=== PATIENT | female | born 1945 | race Caucasian/White ===

== ENCOUNTER 2018-10-10 19:57 | Inpatient (IN) ==
[2018-10-10 20:52] LABS: Bilirubin,Urine Small (Negative); Blood,Urine Moderate (Negative); Color,Urine Dark Yellow (Yellow); Glucose,Urine (UA) Normal (Normal); Ketones,Urine Negative (Negative); Leukocyte Esterase,Urine Small (Negative); Nitrite,Urine Negative (Negative); Protein,Urine 30 mg/dL (Neg-Trace); Specific Gravity,Urine 1.027 (1.010-1.025); Urobilinogen,Urine Normal (Normal)
[2018-10-10 20:54] LABS: Bacteria,Urine None Seen per hpf (None-Few); Squamous Epithelial Cell,Urine Many per lpf (None-Few); WBC,Urine 15-30 per hpf (0-3)
[2018-10-10 21:13] LABS: Basophils # 0.1 K/mcL (0.0-0.2); Basophils % 0.2 %; Eosinophils # 0.1 K/mcL (0.0-0.6); Eosinophils % 0.5 %; Hematocrit 41.9 % (35.3-44.9); Hemoglobin 13.5 g/dL (11.5-15.4); Immature Granulocytes % 1.2 % (0-4); Lymphocytes # 0.9 K/mcL (0.6-4.6); Mean Corpuscular HGB Conc 32.2 g/dL (31.6-35.5); Mean Corpuscular Hemoglobin 30.1 pg (28.0-33.3); Mean Corpuscular Volume 93.5 fL (83.0-100.0); Mean Platelet Volume 8.4 fL (9.4-12.4); Monocytes # 0.4 K/mcL (0.0-1.3); Monocytes % 1.5 %; Neutrophils # 26.8 K/mcL (1.6-8.9); Platelet Count 500 K/mcL (140-400); Red Blood Count 4.48 M/mcL (3.82-4.97); Red Cell Distribution Width 12.3 % (11.5-14.5); Segmented Neutrophils % 93.6 %; White Blood Count 28.6 K/mcL (4.3-11.1)
[2018-10-10 21:16] LABS: Clarity,Urine Hazy (Clear)
[2018-10-10 21:32] LABS: Alanine Aminotransferase 23 Units/L (7-52); Albumin 3.7 g/dL (3.5-5.7); Albumin/Globulin Ratio 1.1 (1.1-2.2); Alkaline Phosphatase 50 Units/L (34-104); Aspartate Amino Transferase 12 Units/L (13-39); BUN/Creatinine Ratio 28 (6-26); Bilirubin,Direct 0.2 mg/dL (0.0-0.2); Bilirubin,Indirect 0.2 mg/dL (0.0-1.2); Bilirubin,Total 0.4 mg/dL (0.3-1.0); Blood Urea Nitrogen 22 mg/dL (8-23); Calcium 9.2 mg/dL (8.6-10.3); Carbon Dioxide 27 mEq/L (23-29); Chloride 99 mEq/L (98-107); Globulin 3.5 g/dL (2.4-3.5); Glucose 151 mg/dL (70-105); Lipase 14 Units/L (11-82); Osmolality,Calculated 296 (280-300); Potassium 3.4 mEq/L (3.5-5.1); Sodium 140 mEq/L (136-145); Total Protein 7.2 g/dL (6.4-8.9); eGFR For African Americans > 60 (> 60); eGFR For Non-African Americans > 60 (> 60)
[2018-10-10 21:37] LABS: Hypersegmented Neutrophils Present (Not Present); Platelet Estimate Increased (Normal); Toxic Granulation Present (Not Present); Toxic Vacuolation Present (Not Present)
[2018-10-10] MEDS ORDERED: *HR* HYDROmorphone (PF) 1 MG/ML SYRINGE IVP STA (22:05)
--- NOTE | 2018-10-10 22:06 | Emergency Department Note ---
Disposition Clinical Impression: Perforated viscus Disposition: Admitted As Inpatient Condition: Serious Time of Disposition: 23:42 General Adult HPI - General Chief complaint: ED Abdominal Pain Stated complaint: ABD / Back pain Time Seen by Provider: 10/10/18 20:57 Source: patient Limitations: no limitations Nursing Notes Reviewed: Yes Vital Signs Reviewed: Yes - History of Present Illness HPI Narrative: Female patient presenting to emergency department complaining of abdominal pain is been going on for around 2 weeks. She was in [facility] within [facility] when this began. She denies any nausea or vomiting. She denies any fevers or chills. She states the pain got significantly worse today. She denies any swelling to her extremities. Does report that she had a nonproductive cough while she was there. Denies any chest pain. No provoking or alleviating factors. Pain Scale: 5 - Related Data Home Medications Medication Instructions Recorded Confirmed Lisinopril [Zestril] 5 mg PO DAILY 10/10/18 10/10/18 Allergies Allergy/AdvReac Type Severity Reaction Status Date / Time No Known Allergies Allergy Verified 10/10/18 21:16 All systems ED: reviewed and negative except as stated. Review of Systems: As Per HPI Constitutional: Denies: fever Cardiovascular: Denies: chest pain, palpitations, syncope Respiratory: Reports: cough. Denies: dyspnea, sputum production Gastrointestinal: Reports: abdominal pain. Denies: nausea, vomiting, diarrhea Genitourinary: Reports: frequency (decreased). Denies: urgency, hematuria Musculoskeletal: Denies: back pain, neck pain Neurological: Denies: weakness Past Medical History - Past Medical History Attestation: Yes The following information was validated with the patient. Source: patient Medical history: Reports: hypertension Psychiatric history: Reports: anxiety - Social History Smoking Status: Never smoker Smokeless Tobacco Status: No Alcohol use: Reports: none Drug use: Reports: none Physical Exam - General Limitations: no limitations General appearance: alert, in distress (appears in pain) - Head Head exam: atraumatic, normocephalic, normal inspection - Eye Eye exam: Present: normal appearance, PERRL, EOMI - ENT ENT exam: normal exam, normal oropharynx, mucous membranes moist - Neck Neck exam: Present: normal inspection, full ROM, trachea midline - Chest Chest inspection: Present: normal inspection, symmetric chest wall rise - Respiratory Respiratory exam: Present: normal lung sounds bilaterally. Absent: respiratory distress, accessory muscle use - Cardiovascular Cardiovascular exam: Present: normal rhythm, tachycardia, normal heart sounds - Abdominal Exam Abdominal exam: Present: soft, tenderness, distention, guarding, rigidity (The lower abdomen. Not entire abdomen.). Absent: rebound - Extremities Exam Extremities exam: Present: normal inspection, full ROM, normal capillary refill. Absent: tenderness, pedal edema - Back Exam Back exam: Present: normal inspection, full ROM. Absent: tenderness - Neurological Exam Neurological exam: Present: alert, oriented X3 - Psychiatric Psychiatric exam: Present: normal affect, normal mood - Skin Skin exam: Present: warm, dry, intact, normal color. Absent: rash, cyanosis, diaphoresis Course Course Narrative: Female patient reports 2 weeks of abdominal pain. Got severely worse today. States that it shows diffuse. No vomiting. No diarrhea. No melena or hematochezia. Patient only medical history of hypertension and takes lisinopril for. She denies any history of irregular heartbeat. She has no history of abdominal surgeries before. No fevers. States that she is just not feeling well. Labs were performed by triage which showed a leukocytosis. Her abdomen is distended mainly in the lower quadrants. She does have significant pain to palpation of her abdomen. And concern for an intra-abdominal process so an abdominal CT was ordered. The CT did come back which shows a perforated viscus. She was placed on antibiotics at that time. She was given 2 L of fluid as well as pain medication which she states made her pain go away completely. 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 We did place patient on Zosyn. We discussed this with the surgical services who will be down to see the patient and take her to surgery. I did discuss this with the patient and she expressed understanding of the course of events and diagnosis. Time: 23:41 - Consultations Consultation #1: I spoke with Dr Stephens from surgery. She states that she will be down to see the patient. She is agreeable with our and about twice of Zosyn. Time: 23:26 Vital Signs Temperature 98 F 10/10/18 20:06 Pulse Rate 135 10/10/18 20:06 Respiratory Rate 16 10/10/18 20:06 Blood Pressure 127/71 10/10/18 20:06 O2 Sat by Pulse Oximetry 98 10/10/18 20:06 Temperature 98 F 10/10/18 20:06 Pulse Rate 91 10/10/18 23:14 Respiratory Rate 20 10/11/18 00:03 Blood Pressure 120/76 10/11/18 00:03 O2 Sat by Pulse Oximetry 96 10/10/18 23:14 Oxygen Delivery Oxygen Delivery Room Air Medical Decision Making - Medical Records Medical records reviewed: Yes I reviewed the patient's medical records. - Lab Data Lab results reviewed: Yes I reviewed the patient's lab results. Result diagrams: 10/10/18 20:39 10/10/18 20:39 Lab Results 10/10/18 10/10/18 10/10/18 Range/Units 20:31 20:39 20:39 WBC 28.6 H (4.3-11.1) K/mcL RBC 4.48 (3.82-4.97) M/mcL Hgb 13.5 (11.5-15.4) g/dL Hct 41.9 (35.3-44.9) % MCV 93.5 (83.0-100.0) fL MCH 30.1 (28.0-33.3) pg MCHC 32.2 (31.6-35.5) g/dL RDW 12.3 (11.5-14.5) % Plt Count 500 H (140-400) K/mcL MPV 8.4 L (9.4-12.4) fL Immature Gran % 1.2 (0-4) % Seg Neutrophils % 93.6 % Lymphocytes % 3.0 % Monocytes % 1.5 % Eosinophils % 0.5 % Basophils % 0.2 % Neutrophils # 26.8 H (1.6-8.9) K/mcL Lymphocytes # 0.9 (0.6-4.6) K/mcL Monocytes # 0.4 (0.0-1.3) K/mcL Eosinophils # 0.1 (0.0-0.6) K/mcL Basophils # 0.1 (0.0-0.2) K/mcL Hypersegmented Neuts Present A (Not Present) Toxic Granulation Present A (Not Present) Toxic Vacuolation Present A (Not Present) Platelet Estimate Increased H (Normal) Sodium 140 (136-145) mEq/L Potassium 3.4 L (3.5-5.1) mEq/L Chloride 99 (98-107) mEq/L Carbon Dioxide 27 (23-29) mEq/L BUN 22 (8-23) mg/dL Creatinine 0.79 (0.60-1.20) mg/dL Est GFR ( Amer) > 60 (> 60) Est GFR (Non-Af Amer) > 60 (> 60) BUN/Creatinine Ratio 28 H (6-26) Glucose 151 H (70-105) mg/dL Calculated Osmolality 296 (280-300) Lactic Acid (0.5-2.2) mmol/L Calcium 9.2 (8.6-10.3) mg/dL Phosphorus (2.7-4.5) mg/dL Magnesium (1.6-2.6) mg/dL Total Bilirubin 0.4 (0.3-1.0) mg/dL Direct Bilirubin 0.2 (0.0-0.2) mg/dL Indirect Bilirubin 0.2 (0.0-1.2) mg/dL AST 12 L (13-39) Units/L ALT 23 (7-52) Units/L Alkaline Phosphatase 50 (34-104) Units/L Serum Total Protein 7.2 (6.4-8.9) g/dL Albumin 3.7 (3.5-5.7) g/dL Globulin 3.5 (2.4-3.5) g/dL Albumin/Globulin Ratio 1.1 (1.1-2.2) Lipase 14 (11-82) Units/L Urine Color Dark Yellow (Yellow) Urine Clarity Hazy A (Clear) Urine pH 6.0 (5.0-8.0) pH Units Ur Specific [place] 1.027 H (1.010-1.025) Urine Protein 30 H (Neg-Trace) mg/dL Urine Glucose (UA) Normal (Normal) mg/dL Urine Ketones Negative (Negative) mg/dL Urine Blood Moderate H (Negative) Urine Nitrite Negative (Negative) Urine Bilirubin Small H (Negative) Urine Urobilinogen Normal (Normal) mg/dL Ur Leukocyte Esterase Small H (Negative) Urine Microscopic RBC 3-5 H (0-3) per hpf Urine Microscopic WBC 15-30 H (0-3) per hpf Ur Squamous Epith Cells Many H (None-Few) per lpf Urine Bacteria None Seen (None-Few) per hpf Ur Culture Indicated? YES A (NO) 10/10/18 10/10/18 Range/Units 22:00 22:00 WBC (4.3-11.1) K/mcL RBC (3.82-4.97) M/mcL Hgb (11.5-15.4) g/dL Hct (35.3-44.9) % MCV (83.0-100.0) fL MCH (28.0-33.3) pg MCHC (31.6-35.5) g/dL RDW (11.5-14.5) % Plt Count (140-400) K/mcL MPV (9.4-12.4) fL Immature Gran % (0-4) % Seg Neutrophils % % Lymphocytes % % Monocytes % % Eosinophils % % Basophils % % Neutrophils # (1.6-8.9) K/mcL Lymphocytes # (0.6-4.6) K/mcL Monocytes # (0.0-1.3) K/mcL Eosinophils # (0.0-0.6) K/mcL Basophils # (0.0-0.2) K/mcL Hypersegmented Neuts (Not Present) Toxic Granulation (Not Present) Toxic Vacuolation (Not Present) Platelet Estimate (Normal) Sodium (136-145) mEq/L Potassium (3.5-5.1) mEq/L Chloride (98-107) mEq/L Carbon Dioxide (23-29) mEq/L BUN (8-23) mg/dL Creatinine (0.60-1.20) mg/dL Est GFR ( Amer) (> 60) Est GFR (Non-Af Amer) (> 60) BUN/Creatinine Ratio (6-26) Glucose (70-105) mg/dL Calculated Osmolality (280-300) Lactic Acid 1.7 (0.5-2.2) mmol/L Calcium (8.6-10.3) mg/dL Phosphorus 3.5 (2.7-4.5) mg/dL Magnesium 1.6 (1.6-2.6) mg/dL Total Bilirubin (0.3-1.0) mg/dL Direct Bilirubin (0.0-0.2) mg/dL Indirect Bilirubin (0.0-1.2) mg/dL AST (13-39) Units/L ALT (7-52) Units/L Alkaline Phosphatase (34-104) Units/L Serum Total Protein (6.4-8.9) g/dL Albumin (3.5-5.7) g/dL Globulin (2.4-3.5) g/dL Albumin/Globulin Ratio (1.1-2.2) Lipase (11-82) Units/L Urine Color (Yellow) Urine Clarity (Clear) Urine pH (5.0-8.0) pH Units Ur Specific [place] (1.010-1.025) Urine Protein (Neg-Trace) mg/dL Urine Glucose (UA) (Normal) mg/dL Urine Ketones (Negative) mg/dL Urine Blood (Negative) Urine Nitrite (Negative) Urine Bilirubin (Negative) Urine Urobilinogen (Normal) mg/dL Ur Leukocyte Esterase (Negative) Urine Microscopic RBC (0-3) per hpf Urine Microscopic WBC (0-3) per hpf Ur Squamous Epith Cells (None-Few) per lpf Urine Bacteria (None-Few) per hpf Ur Culture Indicated? (NO) - Radiology Data Radiology results reviewed: Yes I reviewed the patient's radiology results. Abdomen/Pelvis CT 10/10/18 21:52 IMPRESSION: 1. Perforated cecal volvulus with large pneumoperitoneum 2. Wall thickening of the gallbladder presumably due to chronic gallbladder disease D/ / Melo Duncan MD / Melo Duncan MD Interpreting Provider: Melo Duncan MD - EKG Data EKG #1 EKG attestation: Yes I reviewed and interpreted this EKG. EKG results narrative: Sinus tachycardia at a rate of 129. QRS duration is 78. QT is 297. QTC is 373. No signs of acute ischemia. Good R-wave progression. No signs of WPW or Brugada.
[2018-10-10] MEDS: 0.9 % Sodium Chloride 1,000 ML IVC SCH ×2 (22:22→23:12)
[2018-10-10 22:32] LABS: Magnesium 1.6 mg/dL (1.6-2.6); Phosphorous 3.5 mg/dL (2.7-4.5)
--- NOTE | 2018-10-10 22:41 | Emergency Department Note ---
Disposition Clinical Impression: Perforated viscus Disposition: Admitted As Inpatient Condition: Fair Referrals: Melody Olvera, BABY COUNSELOR [Primary Care Provider] - Forms: ED Satisfaction Letter, Work/School Release Time of Disposition: 23:42 General Adult HPI - General Chief complaint: ED Abdominal Pain Stated complaint: ABD / Back pain Time Seen by Provider: 10/10/18 20:57 Source: patient Limitations: no limitations - History of Present Illness Pain Scale: 5 - Related Data Home Medications Medication Instructions Recorded Confirmed Lisinopril [Zestril] 5 mg PO DAILY 10/10/18 10/10/18 Allergies Allergy/AdvReac Type Severity Reaction Status Date / Time No Known Allergies Allergy Verified 10/10/18 21:16 Past Medical History - Past Medical History Medical history: Reports: hypertension Psychiatric history: Reports: anxiety - Social History Smoking Status: Never smoker Smokeless Tobacco Status: No Alcohol use: Reports: none Drug use: Reports: none Physical Exam - General Limitations: no limitations General appearance: alert Course Vital Signs Temperature 98 F 10/10/18 20:06 Pulse Rate 135 10/10/18 20:06 Respiratory Rate 16 10/10/18 20:06 Blood Pressure 127/71 10/10/18 20:06 O2 Sat by Pulse Oximetry 98 10/10/18 20:06 Temperature 98 F 10/10/18 20:06 Pulse Rate 91 10/10/18 23:14 Respiratory Rate 20 10/10/18 23:14 Blood Pressure 127/62 10/10/18 23:14 O2 Sat by Pulse Oximetry 96 10/10/18 23:14 Oxygen Delivery Oxygen Delivery Room Air Medical Decision Making - Lab Data Result diagrams: 10/10/18 20:39 10/10/18 20:39 Lab Results 10/10/18 10/10/18 10/10/18 Range/Units 20:31 20:39 20:39 WBC 28.6 H (4.3-11.1) K/mcL RBC 4.48 (3.82-4.97) M/mcL Hgb 13.5 (11.5-15.4) g/dL Hct 41.9 (35.3-44.9) % MCV 93.5 (83.0-100.0) fL MCH 30.1 (28.0-33.3) pg MCHC 32.2 (31.6-35.5) g/dL RDW 12.3 (11.5-14.5) % Plt Count 500 H (140-400) K/mcL MPV 8.4 L (9.4-12.4) fL Immature Gran % 1.2 (0-4) % Seg Neutrophils % 93.6 % Lymphocytes % 3.0 % Monocytes % 1.5 % Eosinophils % 0.5 % Basophils % 0.2 % Neutrophils # 26.8 H (1.6-8.9) K/mcL Lymphocytes # 0.9 (0.6-4.6) K/mcL Monocytes # 0.4 (0.0-1.3) K/mcL Eosinophils # 0.1 (0.0-0.6) K/mcL Basophils # 0.1 (0.0-0.2) K/mcL Hypersegmented Neuts Present A (Not Present) Toxic Granulation Present A (Not Present) Toxic Vacuolation Present A (Not Present) Platelet Estimate Increased H (Normal) Sodium 140 (136-145) mEq/L Potassium 3.4 L (3.5-5.1) mEq/L Chloride 99 (98-107) mEq/L Carbon Dioxide 27 (23-29) mEq/L BUN 22 (8-23) mg/dL Creatinine 0.79 (0.60-1.20) mg/dL Est GFR ( Amer) > 60 (> 60) Est GFR (Non-Af Amer) > 60 (> 60) BUN/Creatinine Ratio 28 H (6-26) Glucose 151 H (70-105) mg/dL Calculated Osmolality 296 (280-300) Lactic Acid (0.5-2.2) mmol/L Calcium 9.2 (8.6-10.3) mg/dL Phosphorus (2.7-4.5) mg/dL Magnesium (1.6-2.6) mg/dL Total Bilirubin 0.4 (0.3-1.0) mg/dL Direct Bilirubin 0.2 (0.0-0.2) mg/dL Indirect Bilirubin 0.2 (0.0-1.2) mg/dL AST 12 L (13-39) Units/L ALT 23 (7-52) Units/L Alkaline Phosphatase 50 (34-104) Units/L Serum Total Protein 7.2 (6.4-8.9) g/dL Albumin 3.7 (3.5-5.7) g/dL Globulin 3.5 (2.4-3.5) g/dL Albumin/Globulin Ratio 1.1 (1.1-2.2) Lipase 14 (11-82) Units/L Urine Color Dark Yellow (Yellow) Urine Clarity Hazy A (Clear) Urine pH 6.0 (5.0-8.0) pH Units Ur Specific [place] 1.027 H (1.010-1.025) Urine Protein 30 H (Neg-Trace) mg/dL Urine Glucose (UA) Normal (Normal) mg/dL Urine Ketones Negative (Negative) mg/dL Urine Blood Moderate H (Negative) Urine Nitrite Negative (Negative) Urine Bilirubin Small H (Negative) Urine Urobilinogen Normal (Normal) mg/dL Ur Leukocyte Esterase Small H (Negative) Urine Microscopic RBC 3-5 H (0-3) per hpf Urine Microscopic WBC 15-30 H (0-3) per hpf Ur Squamous Epith Cells Many H (None-Few) per lpf Urine Bacteria None Seen (None-Few) per hpf Ur Culture Indicated? YES A (NO) 10/10/18 10/10/18 Range/Units 22:00 22:00 WBC (4.3-11.1) K/mcL RBC (3.82-4.97) M/mcL Hgb (11.5-15.4) g/dL Hct (35.3-44.9) % MCV (83.0-100.0) fL MCH (28.0-33.3) pg MCHC (31.6-35.5) g/dL RDW (11.5-14.5) % Plt Count (140-400) K/mcL MPV (9.4-12.4) fL Immature Gran % (0-4) % Seg Neutrophils % % Lymphocytes % % Monocytes % % Eosinophils % % Basophils % % Neutrophils # (1.6-8.9) K/mcL Lymphocytes # (0.6-4.6) K/mcL Monocytes # (0.0-1.3) K/mcL Eosinophils # (0.0-0.6) K/mcL Basophils # (0.0-0.2) K/mcL Hypersegmented Neuts (Not Present) Toxic Granulation (Not Present) Toxic Vacuolation (Not Present) Platelet Estimate (Normal) Sodium (136-145) mEq/L Potassium (3.5-5.1) mEq/L Chloride (98-107) mEq/L Carbon Dioxide (23-29) mEq/L BUN (8-23) mg/dL Creatinine (0.60-1.20) mg/dL Est GFR ( Amer) (> 60) Est GFR (Non-Af Amer) (> 60) BUN/Creatinine Ratio (6-26) Glucose (70-105) mg/dL Calculated Osmolality (280-300) Lactic Acid 1.7 (0.5-2.2) mmol/L Calcium (8.6-10.3) mg/dL Phosphorus 3.5 (2.7-4.5) mg/dL Magnesium 1.6 (1.6-2.6) mg/dL Total Bilirubin (0.3-1.0) mg/dL Direct Bilirubin (0.0-0.2) mg/dL Indirect Bilirubin (0.0-1.2) mg/dL AST (13-39) Units/L ALT (7-52) Units/L Alkaline Phosphatase (34-104) Units/L Serum Total Protein (6.4-8.9) g/dL Albumin (3.5-5.7) g/dL Globulin (2.4-3.5) g/dL Albumin/Globulin Ratio (1.1-2.2) Lipase (11-82) Units/L Urine Color (Yellow) Urine Clarity (Clear) Urine pH (5.0-8.0) pH Units Ur Specific [place] (1.010-1.025) Urine Protein (Neg-Trace) mg/dL Urine Glucose (UA) (Normal) mg/dL Urine Ketones (Negative) mg/dL Urine Blood (Negative) Urine Nitrite (Negative) Urine Bilirubin (Negative) Urine Urobilinogen (Normal) mg/dL Ur Leukocyte Esterase (Negative) Urine Microscopic RBC (0-3) per hpf Urine Microscopic WBC (0-3) per hpf Ur Squamous Epith Cells (None-Few) per lpf Urine Bacteria (None-Few) per hpf Ur Culture Indicated? (NO) Attestation Statement - Attestation Attestation: I examined this patient and my medical decision-making was reviewed with the Resident Physician. I agree with the documented findings, disposition and treatment plan as described except to the extent set forth below. Abdomen is soft but she guards to light palpation throughout the abdomen. She is tachycardic. She appears somewhat uncomfortable but nontoxic. Denies any symptoms of bleeding. No fever. Agree with the workup initiated by Dr. Benedict. CT showed extensive amount of free air consistent with ruptured viscus. Antibi otics been administered. Surgery the hospitalist to have been notified.
[2018-10-10] MEDS ORDERED: Piperacillin/Tazobactam 3.375 GM in 0.9 % Sodium Chloride Mini Bag 100 ML IVPB STA (23:24)
[2018-10-10] MEDS ORDERED: *HR* Succinylcholine 200 MG/10 ML VIAL IVP ONE (23:55)
[2018-10-10] MEDS ORDERED: *HR* Rocuronium Bromide 50 MG/5 ML VIAL ONE (23:55)
[2018-10-10] MEDS ORDERED: Lidocaine -MPF 2% 2 ML VIAL ONE (23:55)
[2018-10-10] MEDS ORDERED: *HR* Midazolam HCl 2 MG/2 ML VIAL ONE (23:56)
[2018-10-10] MEDS ORDERED: Lidocaine -MPF 4% 5 ML AMPUL ONE (23:56)
[2018-10-10] MEDS ORDERED: *HR* Propofol 200 MG/20 ML VIAL IVP ONE ×2 (23:56→23:59)
[2018-10-10] MEDS ORDERED: *HR* FentaNYL (PF) 100 MCG/2 ML VIAL ONE (23:56)
[2018-10-11] MEDS ORDERED: Naloxone 0.4 MG/ML INJ IVP PRN ×2 (00:40→05:37)
[2018-10-11] MEDS ORDERED: Ondansetron 4 MG/2 ML VIAL IVP PRN ×2 (00:40→05:37)
[2018-10-11] MEDS ORDERED: 0.9 % Sodium Chloride 1,000 ML IVC SCH (00:45)
--- NOTE | 2018-10-11 01:52 | Anesthesia Evaluation PreOp ---
Date of Encounter: 10/11/18 Time of Encounter: 01:50 - Past History Planned Operation: Expl Lap re: perforated cecal volvulus Cardiac History: Denies any Significant Hx Pulmonary History: Denies Any Significant HX [employer] History: Denies Any Significant HX Other Medical History: Denies Any Significant HX Anesthesia History: No Prior Anesthetic Complications, Past Anesthesia (HYster 1989) Alcohol Use: none Drug use: none Medications and Allergies Lisinopril [Zestril] 5 mg PO DAILY 10/10/18 [History] Allergy/AdvReac Type Severity Reaction Status Date / Time No Known Allergies Allergy Verified 10/10/18 21:16 - Meds/Allergy Pre-op Review Medications Reviewed: Yes Allergies Reviewed: Yes Beta Blockers on Current Med List: No Anesthesia Results - Labs 10/10/18 20:39 10/10/18 20:39 Impressions Abdomen/Pelvis CT 10/10/18 21:52 IMPRESSION: 1. Perforated cecal volvulus with large pneumoperitoneum 2. Wall thickening of the gallbladder presumably due to chronic gallbladder disease D/ / Melo Duncan MD / Melo Duncan MD Interpreting Provider: Melo Duncan MD 06/21/2017 EV/EV echocardiogram Impressions: LVEF 60-65%. Normal LV chamber size, wall thickness and function. Mild left ventricular diastolic dysfunction. Normal right ventricular structure and function. No evidence of pulmonary hypertension. No significant valvular dysfunction. Left Ventricular Wall Motion: Rest Echo Findings All wall segments showed normal motion. Nuclear Stress Test 06/21/2017 Impression: Pharmacologic stress ECG is negative for ischemia at level of heart rate achieved. Gated EF > 70%. Perfusion imaging was negative for ischemia or infarct. Anesthesia Exam Vital Signs Temp Pulse Resp BP Pulse Ox 10/11/18 00:46 97.9 F 118 16 134/72 95 10/11/18 00:03 20 120/76 10/10/18 23:14 91 20 127/62 96 10/10/18 22:14 98 10/10/18 22:00 112 24 127/66 99 10/10/18 21:20 118 20 121/58 99 10/10/18 21:19 100 10/10/18 20:06 98 F 135 16 127/71 98 Intake and Output 10/10/18 10/10/18 10/11/18 15:59 23:59 07:59 Intake Total 1000 / 1000 Balance 1000 / 1000 Intake: IV Fluids 1000 / 1000 0.9 % Sodium Chloride 1,000 ML 1000 / 1000 @ 999 mls/hr IVC .Q1H1M [facility]VIS Rx# :[id number] Other: Stool Characteristics Normal for Patient Stool Color Brown Weight 52.617 kg 56.6 kg Patient Weight 10/11/18 23:59 Weight 56.6 kg Height: 5'2" Weight: 124# BMI = 23 NPO (# of Hours): MNOc Pain Scale Used: Numeric (1 - 10) - HEENT Pupil (Motor): Pupils equal, EOMI Mallampati: IV (SHORT thyromental distance and mal-occlusive bite) Denture Type: Upper: Complete Oral Opening: Greater than 3 - [employer] LOC: Oriented [employer] Motor: Normal RUE, Normal LUE, Normal RLE, Normal LLE, Normal Face [employer] Sensory: Normal: RUE, LUE, RLE, LLE, Face - Cardiac Rhythm: Regular Murmur: None - Pulmonary Breath Sounds: bilateral Clear Respiratory Effort: Symmetrical Anesthesia Assess/Plan ASA Score: 3 Level of consciousness: Cooperative, Oriented, Tranquil Anesthetic Plan: General Recovery Plan: PACU Anes Supervising Prov Stmt: Pt seen/evaluated, R&B discussed, questions answered and consent obtained. Yunior Tariq MD
--- NOTE | 2018-10-11 01:54 | Acute Care Surgery H&P ---
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 All questions were answered. Recommend immediate surgery for exploratory laparotomy withright hemicolectomy and ileostomy. Procedure, risks and benefits are d/w pt and her . Possible complications include but, are not limited to bleeding, infection, septic shock, ureteral injury, bowel leak, [place], stroke, DVT/PE or . Benefits of surgery far outweigh potential risks. Pt understands and wished to proceed as advised. NPO. IVF. IV abx. COnsent obtained and surgery scheduled. (2) HTN (hypertension) Current Visit: Yes Status: Acute Resume home meds when PO allowed. Qualifiers: Qualified Code(s): I10 - Essential (primary) hypertension (3) Perforated viscus Current Visit: Yes Status: Acute see above History of Present Illness Chief complaint: abdominal pain HPI: Ms. Schaffer is a 72 year old female presents to [facility] complaining of progressively worsening abdominal pain. She reports the pain is worst in her right lower quadrant. She states that the patient pain began over a week ago when she was on vacation. She states that at first she thought it was the flu. However the pain progressively worsened to the point where she could not stand it anymore today. The pain is constant and severe. The pain radiates up into the right upper quadrant and left upper quadrant as well. She reports nausea and vomiting. She denies chest pain or shortness of breath. She denies fevers. Bowel movements are always abnormal. Past Med Surg Social Fam HX - Past Medical History Medical history: hyperlipidemia, hypertension Psychiatric history: anxiety - Past Surgical History Additional surgical history: Hysterectomy - Social History Smoking Status: Never smoker Smokeless Tobacco Status: No Alcohol use: none Drug use: none Medications and Allergies Lisinopril [Zestril] 5 mg PO DAILY 10/10/18 [History] Allergy/AdvReac Type Severity Reaction Status Date / Time No Known Allergies Allergy Verified 10/10/18 21:16 Review of Systems All systems PM: The remainder of the systems were reviewed and are negative - Constitutional as per HPI, anorexia, fatigue, weakness, weight loss, no chills, no fever(s), no headache(s), no night sweats - EENT Nose, mouth and throat: dry mouth, nasal congestion, nasal discharge, no dizziness, no sinus pain, no sinus pressure, no sore throat - Cardiovascular no chest pain, no diaphoresis, no dyspnea, no edema - Respiratory no cough, no dyspnea, no wheezing - Gastrointestinal abdominal pain, bloating, constipation, nausea, vomiting, no belching, no diarrhea, no heartburn, no hematochezia, no melena - Genitourinary Genitourinary: no dysuria, no flank pain, no urinary frequency - Musculoskeletal no back pain, no joint swelling, no limited range of motion, no neck pain - Integumentary dry skin, no pruritus, no rash, no wounds, no jaundice - Neurological weakness, no confusion, no dizziness, no focal weakness - Psychiatric no anxiety, no depression - Endocrine fatigue - Hematologic/Lymphatic easy bruising, no easy bleeding General Surgery Exam Initial Vital Signs Temp Pulse Resp BP Pulse Ox 98 F 135 16 127/71 98 10/10/18 20:06 10/10/18 20:06 10/10/18 20:06 10/10/18 20:06 10/10/18 20:06 - General physical appearance moderate distress, severe pain. negative: jaundice - Eyes PERRL, normal ocular movement. negative: icteric - ENT no congestion, dry mucosa. negative: nasal discharge - Neck no masses, trachea midline, no lymphadectomy, no venous distension - Respiratory normal respiratory effort, clear to auscultation - Cardiovascular Cardiovascular exam: Present: RRR. Absent: murmurs, JVD - Abdomen Abdomen general surgery: Present: distended, tender, guarding, rebound, rigid. Absent: bowel sounds present (hypoactive with scant tinkles) - Genitourinary Present: normal external genitalia - Integumentary Integumentary general surgery: Present: warm and dry - Neurologic Present: CN 2-12 grossly intact, normal coordination - Musculoskeletal Present: normal posture - Psychiatric Psychiatric general surgery: Present: A&Ox3, appropriate Results - Labs 10/10/18 20:39 10/10/18 20:39 Abnormal lab results WBC 28.6 K/mcL (4.3-11.1) H 10/10/18 20:39 Plt Count 500 K/mcL (140-400) H 10/10/18 20:39 MPV 8.4 fL (9.4-12.4) L 10/10/18 20:39 26.8 K/mcL (1.6-8.9) H 10/10/18 20:39 Hypersegmented Neuts Present (Not Present) A 10/10/18 20:39 Present (Not Present) A 10/10/18 20:39 Present (Not Present) A 10/10/18 20:39 Increased (Normal) H 10/10/18 20:39 Potassium 3.4 mEq/L (3.5-5.1) L 10/10/18 20:39 28 (6-26) H 10/10/18 20:39 Glucose 151 mg/dL (70-105) H 10/10/18 20:39 AST 12 Units/L (13-39) L 10/10/18 20:39 Hazy (Clear) A 10/10/18 20:31 Ur Specific Colony 1.027 (1.010-1.025) H 10/10/18 20:31 30 mg/dL (Neg-Trace) H 10/10/18 20:31 Moderate (Negative) H 10/10/18 20:31 Small (Negative) H 10/10/18 20:31 Ur Leukocyte Esterase Small (Negative) H 10/10/18 20:31 3-5 per hpf (0-3) H 10/10/18 20:31 15-30 per hpf (0-3) H 10/10/18 20:31 Ur Squamous Epith Cells Many per lpf (None-Few) H 10/10/18 20:31 Ur Culture Indicated? YES (NO) A 10/10/18 20:31 Diabetes panel 10/10/18 Range/Units 20:39 Sodium 140 (136-145) mEq/L Potassium 3.4 L (3.5-5.1) mEq/L Chloride 99 (98-107) mEq/L Carbon Dioxide 27 (23-29) mEq/L BUN 22 (8-23) mg/dL Creatinine 0.79 (0.60-1.20) mg/dL Glucose 151 H (70-105) mg/dL Calcium 9.2 (8.6-10.3) mg/dL AST 12 L (13-39) Units/L ALT 23 (7-52) Units/L Alkaline Phosphatase 50 (34-104) Units/L Albumin 3.7 (3.5-5.7) g/dL Calcium panel 10/10/18 10/10/18 Range/Units 20:39 22:00 Calcium 9.2 (8.6-10.3) mg/dL Phosphorus 3.5 (2.7-4.5) mg/dL Albumin 3.7 (3.5-5.7) g/dL Pituitary panel 10/10/18 Range/Units 20:39 Sodium 140 (136-145) mEq/L Potassium 3.4 L (3.5-5.1) mEq/L Chloride 99 (98-107) mEq/L Carbon Dioxide 27 (23-29) mEq/L BUN 22 (8-23) mg/dL Creatinine 0.79 (0.60-1.20) mg/dL Glucose 151 H (70-105) mg/dL Calcium 9.2 (8.6-10.3) mg/dL Adrenal panel 10/10/18 Range/Units 20:39 Sodium 140 (136-145) mEq/L Potassium 3.4 L (3.5-5.1) mEq/L Chloride 99 (98-107) mEq/L Carbon Dioxide 27 (23-29) mEq/L BUN 22 (8-23) mg/dL Creatinine 0.79 (0.60-1.20) mg/dL Glucose 151 H (70-105) mg/dL Calcium 9.2 (8.6-10.3) mg/dL Total Bilirubin 0.4 (0.3-1.0) mg/dL AST 12 L (13-39) Units/L ALT 23 (7-52) Units/L Alkaline Phosphatase 50 (34-104) Units/L Albumin 3.7 (3.5-5.7) g/dL All other labs normal. - Imaging CT scan - abdomen: image reviewed CT scan - pelvis: image reviewed (Cecal volvulus with perforation)
[2018-10-11] MEDS ORDERED: *HR* Magnesium Sulfate 1 GM/2 ML VIAL ONE (02:16)
[2018-10-11] MEDS ORDERED: Famotidine 20 MG/2 ML VIAL ONE (02:17)
[2018-10-11] MEDS ORDERED: Acetaminophen IV 1,000 MG/100 ML INFUS..BTL ONE (02:17)
[2018-10-11] MEDS ORDERED: CefOXitin 1,000 MG VIAL ONE (02:19)
[2018-10-11] MEDS ORDERED: *HR* PHENYLEPHRINE 1,000 MCG/10 ML SYRINGE IVP ONE (02:57)
[2018-10-11] MEDS ORDERED: Lidocaine -MPF 2% 2 ML VIAL ONE (03:06)
[2018-10-11] MEDS ORDERED: Ketorolac 30 MG/ML VIAL ONE (04:15)
[2018-10-11] MEDS ORDERED: Metoclopramide 10 MG/2 ML VIAL ONE (04:15)
[2018-10-11] MEDS ORDERED: *HR* HYDROmorphone (PF) 1 MG/ML SYRINGE IVP PRN (04:28)
[2018-10-11] MEDS ORDERED: *HR* Promethazine 25 MG/ML VIAL IVP PRN (04:28)
[2018-10-11] MEDS ORDERED: *HR* Labetalol 20 MG/4 ML SYRINGE IVP PRN (04:28)
[2018-10-11] MEDS ORDERED: *HR* HYDROMORPHONE 2 MG/ML VIAL ONE (04:38)
[2018-10-11] MEDS ORDERED: Dexamethasone 4 MG/ML VIAL ONE (04:57)
[2018-10-11] MEDS ORDERED: Ringers Solution, Lactated 1,000 ML ONE (05:09)
--- NOTE | 2018-10-11 05:15 | Anesthesia Evaluation Post Op ---
Date of Encounter: 10/11/18 Time of Encounter: 05:12 - Lungs Lungs: Clear Ascult./Percussion - Airway Airway: Non-obstructed - Cardiovascular Regular Rate - Mental Status Mental Status: Alert & Oriented, Answers Appropriately - Nausea Vomiting Nausea Vomiting: Not Present - Hydration Hydration: NPO, Lundberg catheter - Discharge PostOp Status: Transfer Patient to floor Anes Supervising Prov Stmt: PT seen/evaluated VSS and has met criteira for edischarge to floor. - MD Chandni
--- NOTE | 2018-10-11 05:16 | Operative Note ---
Date of procedure: 10/11/18 Pre-op diagnosis: Perforated colon due to cecal volvulus Post-op diagnosis: same Procedure: 1. Exploratory laparotomy 2. Right hemicolectomy with ileocecal anastomosis 3. Diverting loop ileostomy Complications: None Anesthesia: GETA Surgeon: Antonio Stephens Was there an safety assistant present: No Estimated blood loss (cc): 50 Specimen: Right colon Condition: stable Disposition: PACU Procedure in Detail: This 72-year-old female was taken to the operating room and placed in the supine position. Anterior abdominal wall is prepped and draped in the usual sterile fashion. A midline incision is made from the supraumbilical area to the suprapubic area. Subcutaneous tissue was dissected down to anterior rectus fascia. Fascia is divided using electrocautery. The intra-abdominal cavity is carefully entered. Immediately upon entry be encountered copious amounts of feculent fluid. This was suctioned with a pool suction. A cecal volvulus it is obvious with areas of necrosis and a single perforation. This perforation is closed with a a silk [id number]. Transection margins are determined and are to be at the terminal ileum and at the Aristeo the proximal transverse colon. A linear AMALIA stapling devices stapled across the terminal ileum where the tissue is pink plump and viable. The distal transection margin is also at plump pink and viable tissue at the proximal transverse colon. The right colon mesentery is taken down using an Enseal device. Right colon is removed from the intra-abdominal cavity and sent off for pathology. Copious irrigation is carried out in the right pericolic gutter. An ileal colic anastomosis is created. This is done using the linear AMALIA stapling device to create a [id number] anastomosis. When the anastomosis is completed, the terminal ileal half is unsatisfactorily dusky in appearance. So this and anastomosis is resected and we created using the linear AMALIA stapling device to perform a afca-oh-wzib anastomosis. The sac an ileocolic anastomosis is viable and airtight. Once the linear AMALIA stapling device creates a kkht-pw-yosu anastomosis the rent that is created to allow for the stapling device to pass is closed in layers using 3-0 Vicryl sutures for a full-thickness layer and 3-0 silk interrupted GI Lembert silk sutures. Copious irrigation is carried out in all 4 quadrants of the abdomen with warm sterile saline. The small intestine and colon are returned to their normal anatomic position. NG tube is checked surgically and is in good position. In the right lower quadrant a circular incision is created down to the fascia the fascia is incised with a cruciate incision the peritoneum is divided and a loop of tract of distal ileum is brought up through the anterior abdominal wall and placed over a bridge. A diverting loop ileostomy is created. The ileostomy is matured over a small bridge. The colostomy is matured an ostomy wafer is placed. Prior to the maturation of the diverting loop ileostomy the incision is closed. Fascia is closed using #0 looped PDS. The wound is copiously irrigated. Skin is closed using francoise. A Virgilio Incision VAC Is Placed. Patient tolerated procedure well was taken to PACU in good condition
[2018-10-11] MEDS ORDERED: Morphine PCA 30 MG/ 30 ML 30 ML PCA.VIAL IVC PRN (05:37)
[2018-10-11] MEDS ORDERED: Piperacillin/Tazobactam 3.375 GM in 0.9 % Sodium Chloride Mini Bag 100 ML IVPB SCH (06:00)
[2018-10-11] MEDS ORDERED: *HR* Heparin 5,000 UNIT/ML VIAL SQ SCH (06:00)
[2018-10-11] MEDS ORDERED: Acetaminophen IV 1,000 MG/100 ML INFUS..BTL IVPB SCH (06:00)
[2018-10-11] MEDS: *HR* Heparin 5,000 UNIT/ML VIAL SQ SCH ×2 (06:05→17:50)
[2018-10-11] MEDS: 0.9 % Sodium Chloride 1,000 ML IVC SCH ×2 (06:05→14:53)
[2018-10-11 07:18] LABS: Hematocrit 32.8 % (35.3-44.9); Mean Corpuscular HGB Conc 32.6 g/dL (31.6-35.5); Mean Corpuscular Hemoglobin 30.9 pg (28.0-33.3); Mean Corpuscular Volume 94.8 fL (83.0-100.0); Mean Platelet Volume 8.3 fL (9.4-12.4); Monocytes # 0.4 K/mcL (0.0-1.3); Platelet Count 330 K/mcL (140-400); Red Blood Count 3.46 M/mcL (3.82-4.97); Red Cell Distribution Width 12.7 % (11.5-14.5)
[2018-10-11 07:22] LABS: Hemoglobin 10.7 g/dL (11.5-15.4)
[2018-10-11 07:33] LABS: BUN/Creatinine Ratio 34 (6-26); Blood Urea Nitrogen 20 mg/dL (8-23); Calcium 7.6 mg/dL (8.6-10.3); Carbon Dioxide 23 mEq/L (23-29); Chloride 107 mEq/L (98-107); Glucose 136 mg/dL (70-105); Osmolality,Calculated 295 (280-300); Potassium 3.8 mEq/L (3.5-5.1); Sodium 140 mEq/L (136-145); eGFR For African Americans > 60 (> 60); eGFR For Non-African Americans > 60 (> 60)
[2018-10-11] MEDS: Fluconazole 200 MG/100 ML 200 MG/100 ML BAG IVPB SCH (07:45)
[2018-10-11] MEDS: Pantoprazole 40 MG VIAL IVP SCH (07:45)
[2018-10-11 08:18] LABS: Neutrophils # 21.6 K/mcL (1.6-8.9); Platelet Estimate Normal (Normal)
[2018-10-11] MEDS: Piperacillin/Tazobactam 3.375 GM in 0.9 % Sodium Chloride Mini Bag 100 ML IVPB SCH ×2 (13:26→22:56)
[2018-10-11] MEDS: Acetaminophen IV 1,000 MG/100 ML INFUS..BTL IVPB SCH ×2 (15:30→22:55)
[2018-10-12] MEDS: 0.9 % Sodium Chloride 1,000 ML IVC SCH ×4 (04:53→20:25)
[2018-10-12] MEDS: Acetaminophen IV 1,000 MG/100 ML INFUS..BTL IVPB SCH ×4 (05:03→21:46)
[2018-10-12] MEDS: Piperacillin/Tazobactam 3.375 GM in 0.9 % Sodium Chloride Mini Bag 100 ML IVPB SCH ×3 (05:03→21:46)
[2018-10-12] MEDS: *HR* Heparin 5,000 UNIT/ML VIAL SQ SCH ×2 (05:06→17:44)
--- NOTE | 2018-10-12 06:37 | Electrocardiograph Report ---
[place] 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
[2018-10-12 07:56] LABS: Basophils % 0.1 %; Eosinophils % 0.1 %; Hematocrit 29.9 % (35.3-44.9); Hemoglobin 9.6 g/dL (11.5-15.4); Lymphocytes # 0.8 K/mcL (0.6-4.6); Mean Corpuscular HGB Conc 32.1 g/dL (31.6-35.5); Mean Corpuscular Hemoglobin 30.3 pg (28.0-33.3); Mean Corpuscular Volume 94.3 fL (83.0-100.0); Mean Platelet Volume 8.5 fL (9.4-12.4); Monocytes # 0.6 K/mcL (0.0-1.3); Monocytes % 2.8 %; Neutrophils # 18.2 K/mcL (1.6-8.9); Platelet Count 336 K/mcL (140-400); Red Blood Count 3.17 M/mcL (3.82-4.97); Red Cell Distribution Width 13.2 % (11.5-14.5); White Blood Count 19.8 K/mcL (4.3-11.1)
[2018-10-12 07:57] LABS: BUN/Creatinine Ratio 34 (6-26); Blood Urea Nitrogen 25 mg/dL (8-23); Calcium 7.9 mg/dL (8.6-10.3); Carbon Dioxide 18 mEq/L (23-29); Chloride 111 mEq/L (98-107); Glucose 68 mg/dL (70-105); Osmolality,Calculated 299 (280-300); Potassium 3.6 mEq/L (3.5-5.1); Sodium 143 mEq/L (136-145); eGFR For African Americans > 60 (> 60); eGFR For Non-African Americans > 60 (> 60)
[2018-10-12] MEDS: Pantoprazole 40 MG VIAL IVP SCH (09:29)
[2018-10-12] MEDS: Fluconazole 200 MG/100 ML 200 MG/100 ML BAG IVPB SCH (09:29)
--- NOTE | 2018-10-12 15:06 | AcuteCareSurgery Progress Note ---
<HunterFrancheska Arleth - Last Filed: 10/12/18 15:02> Date of Encounter: 10/12/18 Time of Encounter: 12:00 - Assessment and Plan (1) Cecal volvulus Current Visit: Yes Status: Acute Date of procedure: 10/11/18 Pre-op diagnosis: Perforated colon due to cecal volvulus Post-op diagnosis: same Procedure: 1. Exploratory laparotomy 2. Right hemicolectomy with ileocecal anastomosis 3. Diverting loop ileostomy POD #[address] Chepe Stephens. She is recovering quite well. She is having a significant amount of output in her ileostomy and denies nausea, vomiting, or uncontrolled pain. We will DC her NG and start clear liquid diet. Plan: Continue supportive care and discomfort management while awaiting full return of bowel function Continue G.I. and DVT prophylaxis Incentive spirometry 10 times every hour while awake Out of bed to chair TID, do not offer meal trays while in the bed Activity as tolerated Apply ice 20 minutes on 20 minutes off as needed repeat a.m. labs continue IV antibiotics ostomy care ostomy education referral to social work for home health (2) Insomnia Current Visit: Yes Status: Chronic Continue home meds Qualifiers: Insomnia type: unspecified Qualified Code(s): G47.00 - Insomnia, unsp ecified (3) HTN (hypertension) Current Visit: Yes Status: Chronic Qualifiers: Hypertension type: essential hypertension Qualified Code(s): I10 - Essential (primary) hypertension Subjective Patient reports: no new complaints, still having pain, pain is less, voiding w/o difficulty, flatus, bowel movement (per ileostomy), afebrile Objective Vital Signs - Last 8 Hours Temp Pulse Resp BP Pulse Ox 10/12/18 13:56 98.4 F 99 17 143/77 94 10/12/18 09:58 97.6 F 92 17 131/78 95 10/12/18 09:49 93 Intake and Output 10/11/18 10/12/18 10/12/18 23:59 07:59 15:59 Intake Total 610 / 3110 260 / 1620 1360 / 1620 Output Total 950 / 1400 450 / 1400 Balance 610 / 2360 -690 / 220 910 / 220 Intake: IV Fluids 610 / 3110 200 / 1200 1000 / 1200 0.9 % Sodium Chloride 1,000 ML 410 / 1410 1000 / 1000 @ 125 mls/hr IVC .Q8H [facility] Rx#: [id number] Ofirmev 1,000 mg/100 ml 1,000 100 / 200 100 / 100 mg In 100 ml @ 400 mls/hr IVPB Q6H [facility] Rx#:[id number] Zosyn 3.375 GM In 0.9 % Sodium 100 / 100 100 / 100 Chloride (Mini-Bag +) 100 ML @ 25 mls/hr IVPB Q8H [facility] Rx#: [id number] Oral 0 / 0 60 / 420 360 / 420 Output: Urine 0 / 0 Stool 650 / 1000 350 / 1000 Catheter 300 / 400 100 / 400 Gastric Drainage 0 / 0 Other: Meal NPO Percent of Meal Consumed 0% Stool Consistency liquid liquid Stool Color Brown Green Weight 57.1 kg Blood Glucose* 109 78 71 Patient Weight 10/12/18 23:59 Weight 57.1 kg - General physical appearance no distress - ENT atraumatic, normocephalic - Neck Neck exam: trachea midline - Respiratory normal expansion, normal respiratory effort - Cardiovascular Cardiovascular exam: Present: RRR - Abdomen Abdomen: Present: bowel sounds present, soft, tender (expected postoperative), wound (stoma pink and moist, flatus and output noted) Hernia: none - Incision Incision: Present: clean and dry, intact - Integumentary no rash - Neurologic normal sensation - Musculoskeletal normal posture - Psychiatric oriented to time, oriented to person, oriented to place - Labs 10/12/18 06:43 10/12/18 06:43 Diabetes panel 10/12/18 Range/Units 06:43 Sodium 143 (136-145) mEq/L Potassium 3.6 (3.5-5.1) mEq/L Chloride 111 H (98-107) mEq/L Carbon Dioxide 18 L (23-29) mEq/L BUN 25 H (8-23) mg/dL Creatinine 0.73 (0.60-1.20) mg/dL Glucose 68 L (70-105) mg/dL Calcium 7.9 L (8.6-10.3) mg/dL Calcium panel 10/12/18 Range/Units 06:43 Calcium 7.9 L (8.6-10.3) mg/dL Pituitary panel 10/12/18 Range/Units 06:43 Sodium 143 (136-145) mEq/L Potassium 3.6 (3.5-5.1) mEq/L Chloride 111 H (98-107) mEq/L Carbon Dioxide 18 L (23-29) mEq/L BUN 25 H (8-23) mg/dL Creatinine 0.73 (0.60-1.20) mg/dL Glucose 68 L (70-105) mg/dL Calcium 7.9 L (8.6-10.3) mg/dL Adrenal panel 10/12/18 Range/Units 06:43 Sodium 143 (136-145) mEq/L Potassium 3.6 (3.5-5.1) mEq/L Chloride 111 H (98-107) mEq/L Carbon Dioxide 18 L (23-29) mEq/L BUN 25 H (8-23) mg/dL Creatinine 0.73 (0.60-1.20) mg/dL Glucose 68 L (70-105) mg/dL Calcium 7.9 L (8.6-10.3) mg/dL Consult Discharge Plan - Plan Referrals: Melody Olvera, CIRCULATION REPRESENTATIVE [Primary Care Provider] - <Hugo Rodríguez - Last Filed: 10/12/18 19:04> Date of Encounter: 10/12/18 Objective Vital Signs - Last 8 Hours Temp Pulse Resp BP Pulse Ox 10/12/18 13:56 98.4 F 99 17 143/77 94 Intake and Output 10/12/18 10/12/18 10/12/18 07:59 15:59 23:59 Intake Total 260 / 2160 1560 / 2160 340 / 2160 Output Total 950 / 1900 450 / 1900 500 / 1900 Balance -690 / 260 1110 / 260 -160 / 260 Intake: IV Fluids 200 / 1500 1200 / 1500 100 / 1500 0.9 % Sodium Chloride 1,000 ML 1000 / 1000 @ 125 mls/hr IVC .Q8H [facility] Rx#: [id number] Ofirmev 1,000 mg/100 ml 1,000 100 / 300 100 / 300 100 / 300 mg In 100 ml @ 400 mls/hr IVPB Q6H [facility] Rx#:[id number] Zosyn 3.375 GM In 0.9 % Sodium 100 / 200 100 / 200 Chloride (Mini-Bag +) 100 ML @ 25 mls/hr IVPB Q8H [facility] Rx#: [id number] Oral 60 / 660 360 / 660 240 / 660 Output: Urine 0 / 0 Stool 650 / 1500 350 / 1500 500 / 1500 Catheter 300 / 400 100 / 400 Gastric Drainage 0 / 0 Other: Meal Dinner Percent of Meal Consumed 0% Stool Consistency liquid liquid Stool Color Brown Green Weight 57.1 kg Blood Glucose* 78 71 Patient Weight 10/12/18 23:59 Weight 57.1 kg - Labs 10/12/18 06:43 10/12/18 06:43 Diabetes panel 10/12/18 Range/Units 06:43 Sodium 143 (136-145) mEq/L Potassium 3.6 (3.5-5.1) mEq/L Chloride 111 H (98-107) mEq/L Carbon Dioxide 18 L (23-29) mEq/L BUN 25 H (8-23) mg/dL Creatinine 0.73 (0.60-1.20) mg/dL Glucose 68 L (70-105) mg/dL Calcium 7.9 L (8.6-10.3) mg/dL Calcium panel 10/12/18 Range/Units 06:43 Calcium 7.9 L (8.6-10.3) mg/dL Pituitary panel 10/12/18 Range/Units 06:43 Sodium 143 (136-145) mEq/L Potassium 3.6 (3.5-5.1) mEq/L Chloride 111 H (98-107) mEq/L Carbon Dioxide 18 L (23-29) mEq/L BUN 25 H (8-23) mg/dL Creatinine 0.73 (0.60-1.20) mg/dL Glucose 68 L (70-105) mg/dL Calcium 7.9 L (8.6-10.3) mg/dL Adrenal panel 10/12/18 Range/Units 06:43 Sodium 143 (136-145) mEq/L Potassium 3.6 (3.5-5.1) mEq/L Chloride 111 H (98-107) mEq/L Carbon Dioxide 18 L (23-29) mEq/L BUN 25 H (8-23) mg/dL Creatinine 0.73 (0.60-1.20) mg/dL Glucose 68 L (70-105) mg/dL Calcium 7.9 L (8.6-10.3) mg/dL - Attending Attestation I have personally performed a face to face evaluation on this patient. I have reviewed and agree with the care plan. History and Exam by me shows: The patient is seen and evaluated on morning rounds with the acute care surgery team. Her pain control is excellent. She has ileostomy output. We should be able to get her nasogastric tube out seen and start her on some ice chips. I am very pleased with her overall clinical course. She is well ahead of schedule. Hugo Rodríguez MD FACS
[2018-10-13] MEDS: Acetaminophen IV 1,000 MG/100 ML INFUS..BTL IVPB SCH ×4 (03:36→22:49)
[2018-10-13] MEDS: Piperacillin/Tazobactam 3.375 GM in 0.9 % Sodium Chloride Mini Bag 100 ML IVPB SCH ×3 (05:41→22:45)
[2018-10-13 06:32] LABS: Basophils % 0.1 %; Eosinophils # 0.1 K/mcL (0.0-0.6); Eosinophils % 0.5 %; Hematocrit 28.7 % (35.3-44.9); Hemoglobin 9.4 g/dL (11.5-15.4); Immature Granulocytes % 0.9 % (0-4); Lymphocytes # 0.7 K/mcL (0.6-4.6); Lymphocytes % 3.9 %; Mean Corpuscular HGB Conc 32.8 g/dL (31.6-35.5); Mean Corpuscular Volume 94.7 fL (83.0-100.0); Mean Platelet Volume 8.1 fL (9.4-12.4); Monocytes # 0.4 K/mcL (0.0-1.3); Monocytes % 2.3 %; Neutrophils # 16.2 K/mcL (1.6-8.9); Platelet Count 319 K/mcL (140-400); Red Blood Count 3.03 M/mcL (3.82-4.97); Red Cell Distribution Width 13.4 % (11.5-14.5); Segmented Neutrophils % 92.3 %; White Blood Count 17.6 K/mcL (4.3-11.1)
[2018-10-13 06:50] LABS: BUN/Creatinine Ratio 31 (6-26); Blood Urea Nitrogen 18 mg/dL (8-23); Calcium 7.9 mg/dL (8.6-10.3); Carbon Dioxide 19 mEq/L (23-29); Chloride 114 mEq/L (98-107); Glucose 73 mg/dL (70-105); Osmolality,Calculated 294 (280-300); Potassium 3.2 mEq/L (3.5-5.1); Sodium 142 mEq/L (136-145); eGFR For African Americans > 60 (> 60); eGFR For Non-African Americans > 60 (> 60)
[2018-10-13] MEDS: *HR* Heparin 5,000 UNIT/ML VIAL SQ SCH ×2 (08:21→16:49)
[2018-10-13] MEDS: Fluconazole 200 MG/100 ML 200 MG/100 ML BAG IVPB SCH (09:49)
[2018-10-13] MEDS: Pantoprazole 40 MG VIAL IVP SCH (09:53)
[2018-10-13] MEDS: 0.9 % Sodium Chloride 1,000 ML IVC SCH ×2 (10:46→14:49)
--- NOTE | 2018-10-13 19:12 | AcuteCareSurgery Progress Note ---
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 Pt doing well. Advance to fulls. Teach ileostomy care. Maintain IV abx and ANDI. (2) HTN (hypertension) Current Visit: Yes Status: Chronic Qualifiers: Hypertension type: essential hypertension Qualified Code(s): I10 - Es sential (primary) hypertension (3) Perforated viscus Current Visit: Yes Status: Acute Subjective Patient reports: no new complaints, feels better, still having pain, pain is less, flatus, no bowel movement Narrative: POD#2 right hemicolectomy with diverting ileostomy Objective Vital Signs - Last 8 Hours Temp Pulse Resp BP Pulse Ox 10/13/18 16:08 161/81 10/13/18 16:07 97.9 F 97 14 189/76 96 Intake and Output 10/13/18 10/13/18 10/13/18 07:59 15:59 23:59 Intake Total 1200 / 1940 640 / 1940 100 / 1940 Output Total 700 / 1100 400 / 1100 Balance 500 / 840 640 / 840 -300 / 840 Intake: IV Fluids 1200 / 1700 400 / 1700 100 / 1700 0.9 % Sodium Chloride 1,000 ML 1000 / 1000 @ 125 mls/hr IVC .Q8H [facility] Rx#: [id number] Ofirmev 1,000 mg/100 ml 1,000 100 / 300 100 / 300 100 / 300 mg In 100 ml @ 400 mls/hr IVPB Q6H [facility] Rx#:[id number] Diflucan Premix 200 MG/100 ML 200 / 200 200 mg In 100 ml @ 100 mls/hr IVPB DAILY [facility] Rx#:[id number] Zosyn 3.375 GM In 0.9 % Sodium 100 / 200 100 / 200 Chloride (Mini-Bag +) 100 ML @ 25 mls/hr IVPB Q8H [facility] Rx#: [id number] Oral 240 / 240 Output: Stool 700 / 1100 400 / 1100 Other: Stool Consistency liquid liquid liquid Stool Color Green Green # Voids 1 1 - General physical appearance well developed, well nourished, no distress, no pain - Eyes PERRL, normal ocular movement - ENT normal mucosa, no congestion - Neck Neck exam: trachea midline, no venous distension - Respiratory normal respiratory effort, clear to auscultation - Cardiovascular Cardiovascular exam: Present: RRR. Absent: JVD - Abdomen Abdomen: Present: bowel sounds present, soft, tender (as expected for post-op) Additional Comments: Ileostomy function with gas and small amt liquid stool in bag - Incision Incision: Present: clean and dry, intact - Integumentary no rash - Neurologic CN 2-12 grossly intact, normal coordination - Musculoskeletal normal posture - Psychiatric oriented to time, oriented to person, oriented to place - Labs 10/13/18 06:08 10/13/18 06:08 Diabetes panel 10/13/18 Range/Units 06:08 Sodium 142 (136-145) mEq/L Potassium 3.2 L (3.5-5.1) mEq/L Chloride 114 H (98-107) mEq/L Carbon Dioxide 19 L (23-29) mEq/L BUN 18 (8-23) mg/dL Creatinine 0.59 L (0.60-1.20) mg/dL Glucose 73 (70-105) mg/dL Calcium 7.9 L (8.6-10.3) mg/dL Calcium panel 10/13/18 Range/Units 06:08 Calcium 7.9 L (8.6-10.3) mg/dL Pituitary panel 10/13/18 Range/Units 06:08 Sodium 142 (136-145) mEq/L Potassium 3.2 L (3.5-5.1) mEq/L Chloride 114 H (98-107) mEq/L Carbon Dioxide 19 L (23-29) mEq/L BUN 18 (8-23) mg/dL Creatinine 0.59 L (0.60-1.20) mg/dL Glucose 73 (70-105) mg/dL Calcium 7.9 L (8.6-10.3) mg/dL Adrenal panel 10/13/18 Range/Units 06:08 Sodium 142 (136-145) mEq/L Potassium 3.2 L (3.5-5.1) mEq/L Chloride 114 H (98-107) mEq/L Carbon Dioxide 19 L (23-29) mEq/L BUN 18 (8-23) mg/dL Creatinine 0.59 L (0.60-1.20) mg/dL Glucose 73 (70-105) mg/dL Calcium 7.9 L (8.6-10.3) mg/dL Consult Discharge Plan - Plan Instructions: Ileostomy Care (DC), Ileostomy Creation (DC) Additional Instructions: General Surgical Discharge Instructions 1. No pushing, pulling, or lifting greater than 15 lbs for 6 weeks. 2. You may shower beginning today, but no tub baths, soaking, or swimming for 2 weeks. 3. You may resume driving when you are off narcotics and are safe to react in a car. 4. Take ibuprofen every 8 hours for discomfort. If this does not relieve discomfort, you may take the as needed Percocet. Take narcotics as directed. Do not take more narcotics then directed and do not share your narcotics with any other person. Do not drink alcohol while on narcotics. 5. Reduce your amount of sugary drinks this will help decrease the amount of output in your ileostomy. Follow your ileostomy diet. 6. Report any fevers greater than 100.5F, increase abdominal discomfort, drainage that looks like pus, increased redness or pain at the surgical site, or any vomiting. 7. Report any pain in the calves, shortness of breath, or rapid heartbeat. 8. Follow-up in the office as directed. 9. If you were prescribed antibiotics, do not stop them without talking to your provider. Will follow a low fiber or low residue diet which includes no raw vegetables or fruits. Drink Pedialyte or Gatorade to help with hydration. Eat meals at a normal time and chew well. Measure the output. You will need to drink at least as much fluid to match your output. Referrals: Hugo Rodríguez MD [Partnered Physician] - 10/31/18 8:50 am Melody Olvera CNP [Primary Care Provider] -
[2018-10-14] MEDS: 0.9 % Sodium Chloride 1,000 ML IVC SCH ×2 (02:17→10:31)
[2018-10-14] MEDS: Piperacillin/Tazobactam 3.375 GM in 0.9 % Sodium Chloride Mini Bag 100 ML IVPB SCH ×3 (05:04→20:59)
[2018-10-14] MEDS: Acetaminophen IV 1,000 MG/100 ML INFUS..BTL IVPB SCH ×4 (05:04→22:54)
[2018-10-14] MEDS: Pantoprazole 40 MG VIAL IVP SCH (10:27)
[2018-10-14] MEDS: Fluconazole 200 MG/100 ML 200 MG/100 ML BAG IVPB SCH (10:28)
[2018-10-14] MEDS: *HR* Heparin 5,000 UNIT/ML VIAL SQ SCH ×2 (10:29→17:03)
--- NOTE | 2018-10-14 20:38 | AcuteCareSurgery Progress Note ---
Date of Encounter: 10/14/18 Time of Encounter: 16:00 - Assessment and Plan (1) Cecal volvulus Current Visit: Yes Status: Acute POD#3 right hemicolectomy with diverting ileostomy for perforated cecal volvulus. Pt doing well. Advance to regular diet. Heplock IV. Teach ileostomy care. Maintain IV abx and ANDI. (2) HTN (hypertension) Current Visit: Yes Status: Chronic Qualifiers: Hypertension type: essential hypertension Qualified Code(s): I10 - Essential (primary) hypertension (3) Perforated viscus Current Visit: Yes Status: Acute Subjective Patient reports: no new complaints, feels better, pain is less, voiding w/o difficulty, flatus, no bowel movement, afebrile Objective Vital Signs - Last 8 Hours Temp Pulse Resp BP Pulse Ox 10/14/18 19:45 97.5 F L 101 16 167/92 96 10/14/18 15:24 98.2 F 90 15 163/98 98 Intake and Output 10/14/18 10/14/18 10/14/18 07:59 15:59 23:59 Intake Total 200 / 2587 1300 / 2587 1087 / 2587 Output Total 800 / 1400 500 / 1400 100 / 1400 Balance -600 / 1187 800 / 1187 987 / 1187 Intake: IV Fluids 200 / 2537 1300 / 2537 1037 / 2537 0.9 % Sodium Chloride 1,000 ML 1000 / 1837 837 / 1837 @ 125 mls/hr IVC .Q8H [facility] Rx#: [id number] Ofirmev 1,000 mg/100 ml 1,000 100 / 300 100 / 300 100 / 300 mg In 100 ml @ 400 mls/hr IVPB Q6H [facility] Rx#:[id number] Diflucan Premix 200 MG/100 ML 100 / 100 200 mg In 100 ml @ 100 mls/hr IVPB DAILY [facility] Rx#:[id number] Zosyn 3.375 GM In 0.9 % Sodium 100 / 300 100 / 300 100 / 300 Chloride (Mini-Bag +) 100 ML @ 25 mls/hr IVPB Q8H [facility] Rx#: [id number] Oral 0 / 50 50 / 50 Output: Urine 0 / 0 Stool 800 / 1400 500 / 1400 100 / 1400 Other: Meal Dinner Percent of Meal Consumed 5% 30% Stool Size Small Stool Consistency liquid Stool Color Green # Voids 1 2 Weight 57.5 kg Patient Weight 10/14/18 23:59 Weight 57.5 kg - General physical appearance well developed, well nourished, no distress, no pain - Eyes PERRL, normal ocular movement - ENT normal mucosa, no congestion - Neck Neck exam: trachea midline, no lymphadectomy, no venous distension - Respiratory normal respiratory effort, clear to auscultation - Cardiovascular Cardiovascular exam: Present: RRR. Absent: JVD - Abdomen Abdomen: Present: bowel sounds present, soft. Absent: distended - Incision Incision: Present: clean and dry, intact - Neurologic CN 2-12 grossly intact, normal coordination - Musculoskeletal normal posture - Psychiatric oriented to time, oriented to person, oriented to place - Labs 10/13/18 06:08 10/13/18 06:08 Consult Discharge Plan - Plan Instructions: Ileostomy Care (DC), Ileostomy Creation (DC) Additional Instructions: General Surgical Discharge Instructions 1. No pushing, pulling, or lifting greater than 15 lbs for 6 weeks. 2. You may shower beginning today, but no tub baths, soaking, or swimming for 2 weeks. 3. You may resume driving when you are off narcotics and are safe to react in a car. 4. Take ibuprofen every 8 hours for discomfort. If this does not relieve discomfort, you may take the as needed Percocet. Take narcotics as directed. Do not take more narcotics then directed and do not share your narcotics with any other person. Do not drink alcohol while on narcotics. 5. Reduce your amount of sugary drinks this will help decrease the amount of output in your ileostomy. Follow your ileostomy diet. 6. Report any fevers greater than 100.5F, increase abdominal discomfort, drainage that looks like pus, increased redness or pain at the surgical site, or any vomiting. 7. Report any pain in the calves, shortness of breath, or rapid heartbeat. 8. Follow-up in the office as directed. 9. If you were prescribed antibiotics, do not stop them without talking to your provider. Will follow a low fiber or low residue diet which includes no raw vegetables or fruits. Drink Pedialyte or Gatorade to help with hydration. Eat meals at a normal time and chew well. Measure the output. You will need to drink at least as much fluid to match your output. Referrals: Hugo Rodríguez MD [Partnered Physician] - 10/31/18 8:50 am Melody Olvera CNP [Primary Care Provider] -
[2018-10-15] MEDS: *HR* Heparin 5,000 UNIT/ML VIAL SQ SCH (05:41)
[2018-10-15] MEDS: Acetaminophen IV 1,000 MG/100 ML INFUS..BTL IVPB SCH ×2 (05:42→11:10)
[2018-10-15] MEDS: Piperacillin/Tazobactam 3.375 GM in 0.9 % Sodium Chloride Mini Bag 100 ML IVPB SCH (05:42)
[2018-10-15 06:48] LABS: Basophils % 0.2 %; Eosinophils # 0.1 K/mcL (0.0-0.6); Eosinophils % 0.5 %; Hematocrit 34.1 % (35.3-44.9); Immature Granulocytes % 1.6 % (0-4); Lymphocytes # 1.1 K/mcL (0.6-4.6); Lymphocytes % 8.5 %; Mean Corpuscular HGB Conc 33.1 g/dL (31.6-35.5); Mean Corpuscular Volume 90.5 fL (83.0-100.0); Mean Platelet Volume 8.4 fL (9.4-12.4); Monocytes # 0.8 K/mcL (0.0-1.3); Monocytes % 6.1 %; Neutrophils # 10.8 K/mcL (1.6-8.9); Platelet Count 448 K/mcL (140-400); Red Blood Count 3.77 M/mcL (3.82-4.97); Red Cell Distribution Width 12.9 % (11.5-14.5); Segmented Neutrophils % 83.1 %
[2018-10-15 06:49] LABS: Hemoglobin 11.3 g/dL (11.5-15.4)
[2018-10-15 06:58] VITALS: BP 165/80
[2018-10-15 07:13] LABS: BUN/Creatinine Ratio 7 (6-26); Blood Urea Nitrogen 4 mg/dL (8-23); Calcium 8.3 mg/dL (8.6-10.3); Carbon Dioxide 23 mEq/L (23-29); Chloride 101 mEq/L (98-107); Glucose 102 mg/dL (70-105); Osmolality,Calculated 285 (280-300); Potassium 2.9 mEq/L (3.5-5.1); Sodium 139 mEq/L (136-145); eGFR For African Americans > 60 (> 60); eGFR For Non-African Americans > 60 (> 60)
[2018-10-15] MEDS ORDERED: Potassium Chloride 40 MEQ, Lidocaine 1% 2 ML in D5% in Water 500 ML IVPB ONE (08:44)
--- NOTE | 2018-10-15 08:48 | Discharge Summary ---
<HunterFrancheska Reinoso - Last Filed: 10/15/18 08:42> Orders not resulted at time of discharge: Pending orders 10/10/18 22:00 Culture,Blood [BC] Stat 10/11/18 05:12 Surgical Pathology [PTH] Routine Date of Encounter: 10/15/18 Time of Encounter: 08:42 - Discharge Diagnosis (1) Cecal volvulus Priority: Primary Status: Acute (2) Insomnia Priority: Secondary Status: Chronic Qualifiers: Insomnia type: unspecified Qualified Code(s): G47.00 - Insomnia, unspecified (3) HTN (hypertension) Priority: Secondary Status: Chronic Qualifiers: Hypertension type: essential hypertension Qualified Code(s): I10 - Essential (primary) hypertension General Surgery Exam Initial Vital Signs Temp Pulse Resp BP Pulse Ox 98 F 135 16 127/71 98 10/10/18 20:06 10/10/18 20:06 10/10/18 20:06 10/10/18 20:06 10/10/18 20:06 - General physical appearance well nourished, no distress, no pain - Neck trachea midline - Respiratory normal expansion, normal respiratory effort, clear to auscultation - Cardiovascular Cardiovascular exam: Present: RRR - Abdomen Abdomen general surgery: Present: bowel sounds present, soft, tender (Expected postoperative), wound (Stoma is pink and moist. There is green/brown liquid stool output) - Incision Incision: Present: clean and dry, intact - Integumentary Integumentary general surgery: Present: warm and dry, no abnormal pigmentation - Neurologic Present: normal coordination, normal sensation - Musculoskeletal Present: normal gait, normal posture - Psychiatric Psychiatric general surgery: Present: appropriate, oriented to person, oriented to place, oriented to time, speech is normal, memory intact - Hospital Course Hospital course: Ms. Schaffer is a 72 year old female who presented on 10/10/2018 and was noted to have a perforated viscous and SQL volvulus. 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 Chepe Stephens. Her final pathology remains pending at the time of discharge. Her hospital course has been uncomplicated. She does refuse home healthcare stating that she and her feel comfortable taking care of her ostomy. She is leery about returning to work with ostomy in place. I did let her know this would be addressed at her follow- up appointment. She is ambulating avoiding without difficulty, tolerating a diet without nausea or vomiting, vital signs are stable, and she is having ostomy output. We will begin discharge planning to home with a follow-up in the office in approximately 2 to 3 weeks. - Time Spent with Patient Total time spent providing and/or coordinating discharge services: - Discharge Medications Prescriptions: New Ibuprofen 800 mg PO Q8H PRN #30 tablet PRN Reason: Postsurgical pain HYDROcodone/Acet 5/325 mg [[place] 5-325 mg] 1 tab PO Q6H PRN 5 Days #20 tab PRN Reason: Pain Ondansetron ODT [Zofran ODT] 4 mg SL Q4HR PRN #15 tab.rapdis PRN Reason: Postsurgical nausea Amoxicillin/Clavulanate [Augmentin] 875 mg PO BIDWM 7 Days #14 tablet Continued Sertraline [Zoloft] 50 mg PO DAILY Simvastatin [Zocor] 20 mg PO QAM Oxazepam 10 mg PO HS Lisinopril [Zestril] 10 mg PO DAILY Home Medications: Lisinopril [Zestril] 10 mg PO DAILY 10/11/18 [History] Oxazepam 10 mg PO HS 10/11/18 [History] Sertraline [Zoloft] 50 mg PO DAILY 10/11/18 [History] Simvastatin [Zocor] 20 mg PO QAM 10/11/18 [History] Amoxicillin/Clavulanate [Augmentin] 875 mg PO BIDWM 7 Days #14 tablet 10/15/18 [Rx] HYDROcodone/Acet 5/325 mg [[place] 5-325 mg] 1 tab PO Q6H PRN 5 Days #20 tab 10/15/18 [Rx] Ibuprofen 800 mg PO Q8H PRN #30 tablet 10/15/18 [Rx] Ondansetron ODT [Zofran ODT] 4 mg SL Q4HR PRN #15 tab.rapdis 10/15/18 [Rx] Allergies/Adverse Reactions: Allergy/AdvReac Type Severity Reaction Status Date / Time No Known Allergies Allergy Verified 10/10/18 21:16 Date of admission: 10/11/18 00:40 Primary care physician: Melody Olvera CNP Consults: 10/12/18 15:04 Consult to Enterostomal Therapist [CONS] Routine Reason for Consult: New ileostomy educaiton and RX Time Notified: 15:05 Call Completed: No Consult to Sociology Instructor [CONS] Routine Reason for SW Consult: C for new ileostomy 10/13/18 13:55 Consult to Nutrition [CONS] Routine Comment: ileostomy diet Consulting Provider: NUTRITION Reason for Dietary Consult: Diet Education Discharging clinician: Francheska Harrison Anticipated date of discharge: 10/15/18 Labs on day of discharge: Labs from last 24 hours 10/15/18 10/15/18 06:19 06:19 WBC 13.0 H RBC 3.77 L Hgb 11.3 L D Hct 34.1 L MCV 90.5 MCH 30.0 MCHC 33.1 RDW 12.9 Plt Count 448 H MPV 8.4 L Immature Gran % 1.6 Seg Neutrophils % 83.1 Lymphocytes % 8.5 Monocytes % 6.1 Eosinophils % 0.5 Basophils % 0.2 Neutrophils # 10.8 H Lymphocytes # 1.1 Monocytes # 0.8 Eosinophils # 0.1 Basophils # 0.0 Sodium 139 Potassium 2.9 L Chloride 101 Carbon Dioxide 23 BUN 4 L Creatinine 0.54 L Est GFR ( Amer) > 60 Est GFR (Non-Af Amer) > 60 BUN/Creatinine Ratio 7 Glucose 102 Calculated Osmolality 285 Calcium 8.3 L Preliminary micro results at discharge 10/10/18 22:00 Blood Culture - Preliminary Peripheral Venipuncture Culture is incubating and being continuously monitored for growth. Final report to follow. 10/10/18 22:00 Blood Culture - Preliminary Peripheral Venipuncture Culture is incubating and being continuously monitored for growth. Final report to follow. - Impressions ITS Impressions Abdomen/Pelvis CT 10/10/18 21:52 IMPRESSION: 1. Perforated cecal volvulus with large pneumoperitoneum 2. Wall thickening of the gallbladder presumably due to chronic gallbladder disease D/ / Melo Dunacn MD / Melo Duncan MD Interpreting Provider: Melo Duncan MD - Patient Status Disposition: Home, Self-Care Condition: Fair Functional capacity at discharge: independent ambulation Overall status at discharge: patient is progressing back to baseline - Discharge Instructions Instructions: Ileostomy Care (DC), Ileostomy Creation (DC) Follow Up With: Hugo Rodríguez MD [Partnered Physician] - 10/31/18 8:50 am Melody Olvera CNP [Primary Care Provider] - Additional Instructions: General Surgical Discharge Instructions 1. No pushing, pulling, or lifting greater than 15 lbs for 6 weeks. 2. You may shower beginning today, but no tub baths, soaking, or swimming for 2 weeks. 3. You may resume driving when you are off narcotics and are safe to react in a car. 4. Take ibuprofen every 8 hours for discomfort. If this does not relieve discomfort, you may take the as needed Percocet. Take narcotics as directed. Do not take more narcotics then directed and do not share your narcotics with any other person. Do not drink alcohol while on narcotics. 5. Reduce your amount of sugary drinks this will help decrease the amount of output in your ileostomy. Follow your ileostomy diet. 6. Report any fevers greater than 100.5F, increase abdominal discomfort, drainage that looks like pus, increased redness or pain at the surgical site, or any vomiting. 7. Report any pain in the calves, shortness of breath, or rapid heartbeat. 8. Follow-up in the office as directed. 9. If you were prescribed antibiotics, do not stop them without talking to your provider. Will follow a low fiber or low residue diet which includes no raw vegetables or fruits. Drink Pedialyte or Gatorade to help with hydration. Eat meals at a normal time and chew well. Measure the output. You will need to drink at least as much fluid to match your output. At this point in time, you need to drink AT LEAST 1.5 Liters of (non-sugary) fluids daily - Diet and Activity Activity: increase activity as tolerated Diet: other (new ileostomy diet) <Antonio Ricketts - Last Filed: 10/15/18 13:29> Orders not resulted at time of discharge: Pending orders 10/10/18 22:00 Culture,Blood [BC] Stat 10/11/18 05:12 Surgical Pathology [PTH] Routine Date of Encounter: 10/15/18 - Discharge Diagnosis (1) Cecal volvulus Status: Acute (2) HTN (hypertension) Status: Chronic Qualifiers: Hypertension type: essential hypertension Qualified Code(s): I10 - Essential (primary) hypertension (3) Perforated viscus Status: Acute General Surgery Exam Initial Vital Signs Temp Pulse Resp BP Pulse Ox 98 F 135 16 127/71 98 10/10/18 20:06 10/10/18 20:06 10/10/18 20:06 10/10/18 20:06 10/10/18 20:06 - Hospital Course Hospital course: Ms. Schaffer is a 72 year old female - Time Spent with Patient Total time spent providing and/or coordinating discharge services: Date of admission: 10/11/18 00:40 Primary care physician: Melody Olvera CNP Consults: 10/12/18 15:04 Consult to Enterostomal Therapist [CONS] Routine Reason for Consult: New ileostomy educaiton and RX Time Notified: 15:05 Call Completed: No Consult to Sociology Instructor [CONS] Routine Reason for SW Consult: HHC for new ileostomy 10/13/18 13:55 Consult to Nutrition [CONS] Routine Comment: ileostomy diet Consulting Provider: NUTRITION Reason for Dietary Consult: Diet Education Labs on day of discharge: Labs from last 24 hours 10/15/18 10/15/18 06:19 06:19 WBC 13.0 H RBC 3.77 L Hgb 11.3 L D Hct 34.1 L MCV 90.5 MCH 30.0 MCHC 33.1 RDW 12.9 Plt Count 448 H MPV 8.4 L Immature Gran % 1.6 Seg Neutrophils % 83.1 Lymphocytes % 8.5 Monocytes % 6.1 Eosinophils % 0.5 Basophils % 0.2 Neutrophils # 10.8 H Lymphocytes # 1.1 Monocytes # 0.8 Eosinophils # 0.1 Basophils # 0.0 Sodium 139 Potassium 2.9 L Chloride 101 Carbon Dioxide 23 BUN 4 L Creatinine 0.54 L Est GFR ( Amer) > 60 Est GFR (Non-Af Amer) > 60 BUN/Creatinine Ratio 7 Glucose 102 Calculated Osmolality 285 Calcium 8.3 L Preliminary micro results at discharge 10/10/18 22:00 Blood Culture - Preliminary Peripheral Venipuncture Culture is incubating and being continuously monitored for growth. Final report to follow. 10/10/18 22:00 Blood Culture - Preliminary Peripheral Venipuncture Culture is incubating and being continuously m onitored for growth. Final report to follow. - Impressions ITS Impressions Abdomen/Pelvis CT 10/10/18 21:52 IMPRESSION: 1. Perforated cecal volvulus with large pneumoperitoneum 2. Wall thickening of the gallbladder presumably due to chronic gallbladder disease D/ / Melo Duncan MD / Melo Duncan MD Interpreting Provider: Melo Duncan MD - Attending Attestation I examined this patient and my medical decision-making was reviewed with the AMMONIUM HYDROXIDE OPERATOR. I agree with the documented findings, disposition and treatment plan as described except to the extent set forth below. POD#5 right hemicolectomy with diverting loop ileostomy for perforated cecal volvulus. Pt had an uneventful post-op course. She understands management of ileostomy and incision. ANDI to be removed in 2 days. She is tolerating a regular diet. Her pain is controlled with oral pain meds. She is ambulating and voiding without problems. She will f/u as advised in [facility] clinic. DC home in good condition.
[2018-10-15] MEDS: Fluconazole 200 MG/100 ML 200 MG/100 ML BAG IVPB SCH (09:21)
[2018-10-15] MEDS: Pantoprazole 40 MG VIAL IVP SCH (09:21)
== END 2018-10-15 11:53 | disposition home or self-care (01) | DRG 329 ==
LOC: EMEROOARM 19:57 → 3ANU 19:57
PROVIDERS: ADMIT Surgery; ATTEND Surgery

== ENCOUNTER 2018-12-01 13:12 | Inpatient (IN) ==
[2018-12-01] MEDS ORDERED: cefOXitin 2,000 MG in Water for inj. (sterile) 20 ML IVP ONE (13:34)
--- NOTE | 2018-12-01 13:39 | History & Physical Report ---
Date of Encounter: 12/01/18 Time of Encounter: 13:39 24 Hour HP Update - Instructions Instructions: If the History and Physical is less than 30 days old and was completed prior to A.M. admission and or procedure and has NOT been updated on calendar day of procedure please complete this update prior to performing procedure. - Update Patient reports changes in Medical Condition: No Changes in examination, assessment, or condition: No Changes in Medication: No Preop tests/diagnostics Reviewed: Yes Surgery Remains Indicated: Yes Consent for Planned Operative Procedure(s) Verified: Yes - Pre-Operative Checklist Preoperative Checklist Indicated: Yes Prophylactic Antibiotic Ordered: Yes Home Medications Include Beta David: No
[2018-12-01] MEDS ORDERED: Ringers Solution, Lactated 1,000 ML IVC SCH (13:45)
--- NOTE | 2018-12-01 14:25 | Anesthesia Evaluation PreOp ---
Date of Encounter: 12/01/18 Time of Encounter: 14:35 - Past History Planned Operation: Take down ileostomy Cardiac History: Hyperlipidemia Pulmonary History: Denies Any Significant HX TABLE OPERATOR History: Other (anxiety/depression) Other Medical History: Other (perforated diverticulitis) Anesthesia History: No Prior Anesthetic Complications Alcohol Use: none Drug use: none Medications and Allergies Oxazepam 10 mg PO QAM 10/11/18 [History] Sertraline [Zoloft] 50 mg PO QAM 10/11/18 [History] Simvastatin [Zocor] 20 mg PO QAM 10/11/18 [History] DiphenhydraMINE [Benadryl] 25 mg PO QAM 12/01/18 [History] Allergy/AdvReac Type Severity Reaction Status Date / Time No Known Allergies Allergy Verified 12/01/18 13:47 - Meds/Allergy Pre-op Review Medications Reviewed: Yes Allergies Reviewed: Yes Beta Blockers on Current Med List: No Anesthesia Results - Labs Laboratory Tests 10/15/18 11/23/18 11/23/18 06:19 09:34 09:34 WBC 9.2 Hgb 11.5 Hct 36.7 Plt Count 475 H Sodium 139 Potassium 2.9 L Chloride 101 Carbon Dioxide 23 BUN 4 L Creatinine 0.76 Est GFR ( Amer) > 60 - Imaging EKG: report reviewed, image reviewed Additional studies: TTE: Impressions: LVEF 60-65%. Normal LV chamber size, wall thickness and function. Mild left ventricular diastolic dysfunction. Normal right ventricular structure and function. No evidence of pulmonary hypertension. No significant valvular dysfunction. Holter: Baseline ECG demonstrates: Totals: There were 975250 total beats, including ectopy. Average HR was 71. Minimum HR of 54bpm occurred at 16;05D1 and maximum HR of 131bpm occurred at 12;52D1. Ventricular Ectopy consisted of 1 total beats Supraventricular Ectopy consisted of 8 total, with 4 single and 4 paired beats Nuclear stress: Indications: Syncope, Shortness of breath, lightheadedness Impression: Pharmacologic stress ECG is negative for ischemia at level of heart rate achieved. Gated EF > 70%. Perfusion imaging was negative for ischemia or infarct. Anesthesia Exam Last Vital Signs Temp 97.9 F 12/01/18 13:39 Pulse 122 12/01/18 13:39 Resp 18 12/01/18 13:39 BP 157/84 12/01/18 13:39 Pulse Ox 95 12/01/18 13:39 Weight: 48 kg - HEENT Pupil (Motor): Pupils equal, EOMI Mallampati: III Teeth: Poor dentition Oral Opening: Greater than 3 (short TM distance) - TABLE OPERATOR LOC: Oriented - Cardiac Rhythm: Regular Murmur: None - Pulmonary Breath Sounds: bilateral Clear Respiratory Effort: Symmetrical Anesthesia Assess/Plan ASA Score: 2 Level of consciousness: Cooperative Anesthetic Plan: General, Precautions (patient needed glidescope with pediatric blade last surgery for intubation; MAC 3 blade provided poor visualization per last anesthetic record) Monitoring Plan: Standard Monitors Recovery Plan: PACU
[2018-12-01] MEDS ORDERED: *HR* Promethazine 25 MG/ML VIAL IVP PRN (14:39)
[2018-12-01] MEDS ORDERED: *HR* OxyCODONE Immed Rel 5 MG TABLET PO PRN (14:39)
[2018-12-01] MEDS ORDERED: Dexamethasone 4 MG/ML VIAL ONE (16:56)
[2018-12-01] MEDS ORDERED: Lidocaine -MPF 2% 2 ML VIAL ONE (16:56)
[2018-12-01] MEDS ORDERED: *HR* Midazolam HCl 2 MG/2 ML VIAL ONE (16:56)
[2018-12-01] MEDS ORDERED: *HR* FentaNYL (PF) 100 MCG/2 ML VIAL ONE (16:56)
[2018-12-01] MEDS ORDERED: Ondansetron 4 MG/2 ML VIAL ONE (16:56)
[2018-12-01] MEDS ORDERED: *HR* Propofol 200 MG/20 ML VIAL IVP ONE (16:56)
[2018-12-01] MEDS ORDERED: Acetaminophen IV 1,000 MG/100 ML INFUS..BTL ONE (18:15)
[2018-12-01] MEDS ORDERED: Acetaminophen IV 1,000 MG/100 ML INFUS..BTL IVPB ONE (18:22)
--- NOTE | 2018-12-01 18:52 | Anesthesia Evaluation Post Op ---
Date of Encounter: 12/01/18 Time of Encounter: 18:45 - Vital Signs Vital Signs: Vital Signs/O2 Sat/Glucose, Most Current Temp Pulse Resp BP Pulse Ox 12/01/18 18:28 99.3 F 101 21 152/71 95 12/01/18 18:18 103 19 143/95 93 12/01/18 18:08 101 20 149/91 96 12/01/18 17:58 99.4 F 102 20 154/86 98 12/01/18 17:48 101 22 152/85 95 12/01/18 17:38 101 12 156/84 97 12/01/18 17:28 99.1 F 107 20 161/89 99 - Lungs Lungs: Clear Ascult./Percussion - Airway Airway: Non-obstructed - Cardiovascular Regular Rate - Mental Status Mental Status: Alert & Oriented, Answers Appropriately - Pain Pain Scale: 0 - Nausea Vomiting Nausea Vomiting: Not Present - Hydration Hydration: Ice chips - Discharge PostOp Status: Transfer Patient to floor
[2018-12-01] MEDS ORDERED: 0.9 % Sodium Chloride 1,000 ML IVC SCH (19:34)
[2018-12-01] MEDS ORDERED: Ondansetron 4 MG/2 ML VIAL IVP PRN (19:34)
[2018-12-01] MEDS: Ketorolac 15 MG/ML VIAL IVP PRN (19:58)
[2018-12-02] MEDS: Ketorolac 15 MG/ML VIAL IVP PRN (06:03)
[2018-12-02 12:07] VITALS: BP 132/64
--- NOTE | 2018-12-02 12:18 | Discharge Summary ---
Date of Encounter: 12/02/18 Time of Encounter: 12:18 General Surgery Exam Initial Vital Signs Temp Pulse Resp BP Pulse Ox 97.9 F 122 18 157/84 95 12/01/18 13:26 12/01/18 13:26 12/01/18 13:26 12/01/18 13:26 12/01/18 13:26 - General physical appearance well nourished, no distress - Respiratory normal respiratory effort - Cardiovascular Cardiovascular exam: Present: RRR - Abdomen Abdomen general surgery: Present: soft, non tender - Incision Incision: Present: clean and dry - Hospital Course Hospital course: Ms. Schaffer is a 73 year old female - Time Spent with Patient Total time spent providing and/or coordinating discharge services: Specific discharge activities: Pt may return to normal activities when she feels fit. Take ibuprofen 800 mg by mouth every 8 hours for the next 4 days then as needed. Take Tylenol 1000 mg by mouth every 8 hours for the next 4 days then as needed. - Discharge Medications Prescriptions: No Action Sertraline [Zoloft] 50 mg PO QAM Simvastatin [Zocor] 20 mg PO QAM Oxazepam 10 mg PO QAM DiphenhydraMINE [Benadryl] 25 mg PO QAM Home Medications: Oxazepam 10 mg PO QAM 10/11/18 [History] Sertraline [Zoloft] 50 mg PO QAM 10/11/18 [History] Simvastatin [Zocor] 20 mg PO QAM 10/11/18 [History] DiphenhydraMINE [Benadryl] 25 mg PO QAM 12/01/18 [History] Allergies/Adverse Reactions: Allergy/AdvReac Type Severity Reaction Status Date / Time No Known Allergies Allergy Verified 12/01/18 13:47 Date of admission: 12/01/18 18:56 Primary care physician: Melody Olvera CNP Consults: 12/01/18 22:56 Consult to Nutrition [CONS] Routine Comment: Consulting Provider: NUTRITION Reason for Dietary Consult: MST Score Labs on day of discharge: Labs from last 24 hours 12/01/18 14:36 Potassium 3.8 - Patient Status Disposition: Home, Self-Care Condition: Good Functional capacity at discharge: independent ambulation Overall status at discharge: patient is back to baseline - Discharge Instructions Follow Up With: Melody Olvera CNP [Primary Care Provider] - Asher Hobbs DO [Partnered Physician] -
--- NOTE | 2018-12-06 15:01 | Operative Note ---
Date of procedure: 12/01/18 Pre-op diagnosis: Bowel injury Post-op diagnosis: same Procedure: Takedown of ileostomy Anesthesia: GETA Surgeon: Asher Hobbs Was there an assistant facility manager present: No Estimated blood loss (cc): 5 Specimen: 0 Condition: stable Disposition: floor Procedure in Detail: After informed consent, patient was taken the operating placed in supine position. After adequate sedation anesthesia the abdomen was prepped and draped. Elliptical incision was made around the existing loop ileostomy. Dissection is carried down through the 16 his tissues to the fascia. Once the small bowel been delineated was dissected free from the underlying connective tissue of the abdominal wall. Once it was fully freed the bowel was stapled with a AMALIA 75 mm load. The common enterotomy was closed with a AMALIA 75 mm load was well. There was an excellent lumen identified after the stapling. The bowel was then placed back within the abdomen. The fascia was freed with electrocautery. A looped PDS suture was used to close the abdominal wall in running fashion. Subcutaneous days tissues were closed with 2-0 Vicryl suture. Skin was closed with francoise. She tolerated the procedure well.
== END 2018-12-02 12:55 | disposition home or self-care (01) | DRG 331 ==
LOC: SAMDAY 13:12 → 3ANU 18:56
PROVIDERS: ADMIT Surgery; ATTEND Surgery

== ENCOUNTER 2018-12-06 14:43 | Observation (INO) ==
[2018-12-06] MEDS ORDERED: Acetaminophen IV 1,000 MG/100 ML INFUS..BTL IVPB PRN (15:21)
--- NOTE | 2018-12-06 15:25 | General Surg History&Physical ---
Date of Encounter: 12/06/18 Time of Encounter: 15:22 Assessment and Plan (1) Postoperative ileus Current Visit: Yes Status: Acute The assessment and plan as outlined above was discussed with the patient and/or family members who expressed understanding and agreement. All questions were answered. NPO IV fluids Supportive care I&Os AAS in the am if no improvement with bowel rest Consider NG if no improvement in the next 24 hours GI/DVT prophylaxis IS every 1 hour while awake Labs now- CBC, BMP (2) Nausea and vomiting Current Visit: Yes Status: Acute The assessment and plan as outlined above was discussed with the patient and/or family members who expressed understanding and agreement. All questions were answered. NPO IV fluids Qualifiers: Vomiting type: bilious vomiting Qualified Code(s): R11.14 - Bilious vomiting (3) Dehydration Current Visit: Yes Status: Acute The assessment and plan as outlined above was discussed with the patient and/or family members who expressed understanding and agreement. All questions were answered. IV fluids Labs now- CBC, BMP History of Present Illness Chief complaint: nausea,vomiting, fatigue HPI: Ms. Schaffer is a 73 year old female who is recently s/p an ileostomy revearsal with Dr. Hobbs on 12/01/18. See full H&P in [facility]. Past Med Surg Social Fam HX - Past Medical History Medical history: hyperlipidemia, hypertension Additional medical history: colostomy Psychiatric history: anxiety - Past Surgical History Additional surgical history: Hysterectomy; Exploratory lap. with right hemicolectomy and diverting ileostomy on 10/11/17; Ileostomy revearsal on 12/01/18 - Social History Smoking Status: Never smoker Smokeless Tobacco Status: No Alcohol use: none Drug use: none Medications and Allergies Oxazepam 10 mg PO QAM 10/11/18 [History] Sertraline [Zoloft] 50 mg PO QAM 10/11/18 [History] Simvastatin [Zocor] 20 mg PO QAM 10/11/18 [History] DiphenhydraMINE [Benadryl] 25 mg PO QAM 12/01/18 [History] Allergy/AdvReac Type Severity Reaction Status Date / Time No Known Allergies Allergy Verified 12/01/18 13:47 Review of Systems All systems PM: The remainder of the systems were reviewed and are negative Results - Labs All other labs normal.
[2018-12-06] MEDS: Ondansetron 4 MG/2 ML VIAL IVP PRN ×2 (15:46→20:44)
[2018-12-06] MEDS: 0.9 % Sodium Chloride 1,000 ML IVC SCH ×2 (15:46→23:35)
[2018-12-06 16:43] LABS: Calcium 10.3 mg/dL (8.6-10.3); Potassium 3.2 mEq/L (3.5-5.1)
[2018-12-06 16:59] LABS: Basophils % 0.4 %; Eosinophils % 0.2 %; Hematocrit 35.1 % (35.3-44.9); Hemoglobin 11.7 g/dL (11.5-15.4); Immature Granulocytes % 1.1 % (0-4); Lymphocytes # 0.6 K/mcL (0.6-4.6); Lymphocytes % 11.9 %; Mean Corpuscular HGB Conc 33.3 g/dL (31.6-35.5); Mean Corpuscular Hemoglobin 28.7 pg (28.0-33.3); Mean Corpuscular Volume 86.2 fL (83.0-100.0); Mean Platelet Volume 8.8 fL (9.4-12.4); Monocytes # 0.6 K/mcL (0.0-1.3); Monocytes % 13.4 %; Neutrophils # 3.4 K/mcL (1.6-8.9); Platelet Count 400 K/mcL (140-400); Red Blood Count 4.07 M/mcL (3.82-4.97); White Blood Count 4.7 K/mcL (4.3-11.1)
[2018-12-06] MEDS: *HR* Heparin 5,000 UNIT/ML VIAL SQ SCH (17:21)
[2018-12-07] MEDS: Ondansetron 4 MG/2 ML VIAL IVP PRN ×2 (01:11→06:03)
[2018-12-07] MEDS: *HR* Heparin 5,000 UNIT/ML VIAL SQ SCH ×2 (06:03→17:30)
[2018-12-07] MEDS: Pantoprazole 40 MG VIAL IVP SCH (07:06)
[2018-12-07] MEDS: 0.9 % Sodium Chloride 1,000 ML IVC SCH ×3 (07:07→22:37)
[2018-12-07] MEDS ORDERED: Isovue-370 500 ML BOTTLE IVP ONE (09:56)
[2018-12-07] MEDS ORDERED: *HR* Promethazine 25 MG/ML VIAL IVP PRN (09:58)
[2018-12-07] MEDS ORDERED: 0.9 % Sodium Chloride 1,000 ML IV ONE (10:06)
[2018-12-07] MEDS: Ondansetron 4 MG/2 ML VIAL IVP SCH ×4 (10:15→20:16)
[2018-12-07 10:41] LABS: Basophils % 0.4 %; Eosinophils % 0.4 %; Hematocrit 31.9 % (35.3-44.9); Hemoglobin 10.5 g/dL (11.5-15.4); Immature Granulocytes % 3.2 % (0-4); Lymphocytes # 0.6 K/mcL (0.6-4.6); Lymphocytes % 11.6 %; Mean Corpuscular HGB Conc 32.9 g/dL (31.6-35.5); Mean Corpuscular Hemoglobin 29.2 pg (28.0-33.3); Mean Corpuscular Volume 88.6 fL (83.0-100.0); Mean Platelet Volume 8.7 fL (9.4-12.4); Monocytes # 0.6 K/mcL (0.0-1.3); Monocytes % 11.2 %; Neutrophils # 3.7 K/mcL (1.6-8.9); Platelet Count 381 K/mcL (140-400); Segmented Neutrophils % 73.2 %; White Blood Count 5.1 K/mcL (4.3-11.1)
[2018-12-07 10:58] LABS: Phosphorous 6.8 mg/dL (2.7-4.5)
[2018-12-07 10:59] LABS: Calcium 8.9 mg/dL (8.6-10.3); Potassium 3.1 mEq/L (3.5-5.1)
[2018-12-07 11:00] LABS: INR 1.2; Prothrombin Time 13.1 Seconds (9.4-12.1)
--- NOTE | 2018-12-07 11:02 | General Surgery Progress Note ---
Date of Encounter: 12/07/18 Time of Encounter: 09:00 - Assessment and Plan (1) Postoperative ileus Current Visit: Yes Status: Acute AAS with ileus vs early obstruction. She continues to have vomiting and nausea. We will proceed with CT of the abdomen and pelvis with oral contrast only (given NEO see below) Add scheduled Zofran Q4H ad prn promethazine Continue supportive care and discomfort management GI and DVT prophylaxis IVF OOB to chair TID Ambulate TID Incentive spirometry Repeat am labs Further recommendations pending CT (2) NEO (acute kidney injury) Current Visit: Yes Status: Acute Creatinine 4.14>>3.99 s/p 2L total IVF Bolus 1L over 2 hours, then resume IVF at 125 ml/hr Izquierdo cath for accurate I&O UA at time of izquierdo insertion Oral contrast only for CT as above Avoid nephrotoxins Consult nephrology (Dr. Kelley) who will see the patient. He recommends a Renal US, orders have been placed. We appreciate your assistance. (3) Nausea and vomiting Current Visit: Yes Status: Acute See above Qualifiers: Vomiting type: bilious vomiting Qualified Code(s): R11.14 - Bilious vomiting (4) Hypokalemia Current Visit: Yes Status: Acute Replete as indicated 12/07: K 3.1, replete with 40 MEQ IV; repeat am labs Subjective Patient reports: pain is less, no flatus, no bowel movement, nausea, vomiting (last vomited 0600) Objective Vital Signs - Last 8 Hours Temp Pulse Resp BP Pulse Ox 12/07/18 10:40 98.2 F 86 14 158/79 99 12/07/18 07:22 98.3 F 89 14 144/74 95 12/07/18 03:04 98.3 F 94 14 144/83 98 Intake and Output 12/06/18 12/07/18 12/07/18 23:59 07:59 15:59 Intake Total 1000 / 1000 1000 / 1000 Output Total 500 / 500 200 / 200 0 / 200 Balance 500 / 500 800 / 800 0 / 800 Intake: IV Fluids 1000 / 1000 1000 / 1000 0.9 % Sodium Chloride 1,000 ML 1000 / 1000 1000 / 1000 @ 125 mls/hr IVC .Q8H [facility] Rx#: [id number] Oral 0 / 0 Output: Urine 200 / 200 Emesis 500 / 500 Catheter 0 / 0 Other: Weight 46.2 kg Blood Glucose* 139 125 110 - General physical appearance no distress, no pain - Eyes normal ocular movement - ENT dry mucosa, atraumatic, normocephalic - Neck Neck exam: trachea midline - Respiratory normal expansion, normal respiratory effort - Cardiovascular Cardiovascular exam: Present: RRR - Abdomen Abdomen: Present: soft, tender (expected postoperative). Absent: bowel sounds present Hernia: none - Incision Incision: Present: clean and dry, intact (small amount of ecchymosis RLQ incision) - Integumentary no rash - Neurologic normal sensation - Musculoskeletal normal posture - Psychiatric oriented to time, oriented to person, oriented to place, speech is normal, memory intact - Labs 12/07/18 10:29 12/07/18 10:29 Diabetes panel 12/06/18 12/07/18 Range/Units 15:32 10:29 Sodium 138 141 (136-145) mEq/L Potassium 3.2 L 3.1 L (3.5-5.1) mEq/L Chloride 81 L 92 L (98-107) mEq/L Carbon Dioxide 31 H 29 (23-29) mEq/L BUN 78 H 85 H (8-23) mg/dL Creatinine 4.14 H 3.99 H (0.60-1.20) mg/dL Glucose 191 H 128 H (70-105) mg/dL Calcium 10.3 8.9 (8.6-10.3) mg/dL Calcium panel 12/06/18 12/07/18 12/07/18 Range/Units 15:32 10:29 10:29 Calcium 10.3 8.9 (8.6-10.3) mg/dL Phosphorus 6.8 H (2.7-4.5) mg/dL Pituitary panel 12/06/18 12/07/18 Range/Units 15:32 10:29 Sodium 138 141 (136-145) mEq/L Potassium 3.2 L 3.1 L (3.5-5.1) mEq/L Chloride 81 L 92 L (98-107) mEq/L Carbon Dioxide 31 H 29 (23-29) mEq/L BUN 78 H 85 H (8-23) mg/dL Creatinine 4.14 H 3.99 H (0.60-1.20) mg/dL Glucose 191 H 128 H (70-105) mg/dL Calcium 10.3 8.9 (8.6-10.3) mg/dL Adrenal panel 12/06/18 12/07/18 Range/Units 15:32 10:29 Sodium 138 141 (136-145) mEq/L Potassium 3.2 L 3.1 L (3.5-5.1) mEq/L Chloride 81 L 92 L (98-107) mEq/L Carbon Dioxide 31 H 29 (23-29) mEq/L BUN 78 H 85 H (8-23) mg/dL Creatinine 4.14 H 3.99 H (0.60-1.20) mg/dL Glucose 191 H 128 H (70-105) mg/dL Calcium 10.3 8.9 (8.6-10.3) mg/dL Consult Discharge Plan - Plan Referrals: Melody Olvera, SOCIAL MEDIA MARKETING SPECIALIST [Non-Partnered Physician] -
[2018-12-07] MEDS ORDERED: Potassium Chloride 40 MEQ, Lidocaine 1% 2 ML in D5% in Water 500 ML IVPB ONE (11:07)
--- NOTE | 2018-12-07 11:50 | Event Note ---
Date of Encounter: 12/07/18 Time of Encounter: 11:47 Pt previously reported NKDA. She received a dose of IV promethazine and aprox 4 minutes later began stating that she could see cartoons on the wall. She remains calm and copperative. Family is at bedside and are reassured that she is likely having an adverse reaction to promethazine and this medication will now be added to her allergy list and removed from the orders.
--- NOTE | 2018-12-07 12:27 | Nephrology Consult Note ---
Date of Encounter: 12/07/18 Time of Encounter: 12:25 Assessment and Plan (1) NEO (acute kidney injury) Current Visit: Yes Status: Acute Scr 3.99, GFR 11 Has received 2 liter IVF and is now on 0.9% at 125ml/hour IV-recommend continuing IVF as patient still having N/V At this point we will hold on the whole NEO workup as kidney function is already starting to improve with IVF Will obtain a urine sodium Avoid nephrotoxins if possible. (2) Nausea and vomiting Current Visit: Yes Status: Acute per primary team Qualifiers: Vomiting type: bilious vomiting Qualified Code(s): R11.14 - Bilious vomiting (3) Postoperative ileus Current Visit: Yes Status: Acute per surgery team History of Present Illness - Reason for Consult Consult date: 12/07/18 - Chief Complaint NEO, postoperative ileus - History of Present Illness Ms. Schaffer is a 73 year old female with PMH of hyperlipidemia and HTN who is recently s/p an ileostomy revearsal with Dr. Hobbs on 12/01/18. See full H&P in [facility] by surgeon. Patient has develped decreased renal function and nephrology has been consulted to manage. Past Med Surg Social Fam HX - Past Medical History Medical history: hyperlipidemia, hypertension Additional medical history: colostomy Psychiatric history: anxiety - Past Surgical History Additional surgical history: Hysterectomy; Exploratory lap. with right hemicolectomy and diverting ileostomy on 10/11/17; Ileostomy revearsal on 12/01/18 - Social History Smoking Status: Never smoker Smokeless Tobacco Status: No Alcohol use: none Drug use: none Medications and Allergies Oxazepam 10 mg PO QAM 10/11/18 [History] Sertraline [Zoloft] 50 mg PO QAM 10/11/18 [History] Simvastatin [Zocor] 20 mg PO QAM 10/11/18 [History] DiphenhydraMINE [Benadryl] 25 mg PO QAM 12/01/18 [History] Allergy/AdvReac Type Severity Reaction Status Date / Time promethazine Allergy Hallucinati Verified 12/07/18 11:47 ng Review of Systems All Systems: reviewed and no additional remarkable complaints except as stated Constitutional: weakness, no fever(s) Cardiovascular: no chest pain, no dyspnea Gastrointestinal: nausea, vomiting Exam - Vital Signs Vital signs: Initial Vital Signs Temp Pulse Resp BP Pulse Ox 97.3 F L 111 14 142/64 97 12/06/18 15:20 12/06/18 15:20 12/06/18 15:20 12/06/18 15:20 12/06/18 15:20 Vital Signs - Last 8 Hours Temp Pulse Resp BP Pulse Ox 12/07/18 10:40 98.2 F 86 14 158/79 99 12/07/18 07:22 98.3 F 89 14 144/74 95 Intake and Output 12/06/18 12/07/18 12/07/18 23:59 07:59 15:59 Intake Total 1000 / 1000 1000 / 1000 0 / 1000 Output Total 500 / 500 200 / 425 225 / 425 Balance 500 / 500 800 / 575 -225 / 575 Intake: IV Fluids 1000 / 1000 1000 / 1000 0.9 % Sodium Chloride 1,000 ML 1000 / 1000 1000 / 1000 @ 125 mls/hr IVC .Q8H [facility] Rx#: [id number] Oral 0 / 0 0 / 0 Output: Urine 200 / 325 125 / 325 Emesis 500 / 500 Catheter 100 / 100 Other: Weight 46.2 kg Blood Glucose* 139 125 110 - General Appearance General appearance: well-developed, well-nourished EENT: ATNC, mucous membranes moist, hearing intact, vision intact Neck: supple Respiratory: clear Cardiology: no edema, normal S1, normal S2 Gastrointestinal: no tenderness, no guarding Integumentary: warm and dry Neurologic: alert and oriented x3 Psychiatric: mood/affect appropriate, cooperative Results - Lab Results 12/07/18 10:29 12/07/18 10:29 Most recent lab results 12/07/18 12/07/18 10:29 10:29 Calcium 8.9 Phosphorus 6.8 H Magnesium 2.0 Consult Discharge Plan - Plan Referrals: Melody Olvera, ADVERTISING SALES EXECUTIVE [Non-Partnered Physician] -
[2018-12-07] MEDS ORDERED: Lidocaine Jelly 11 ml Syringe MM STA (13:28)
[2018-12-07] MEDS ORDERED: Ondansetron 4 MG/2 ML VIAL IVP PRN (13:41)
[2018-12-07] MEDS ORDERED: Chloraseptic Spray 177 ML BOTTLE MM PRN (13:44)
[2018-12-07] MEDS ORDERED: Saliva Stimulant 100ml BOTTLE PO PRN (13:44)
[2018-12-07 13:46] LABS: Bilirubin,Urine Small (Negative); Blood,Urine Large (Negative); Clarity,Urine Cloudy (Clear); Color,Urine Yellow (Yellow); Glucose,Urine (UA) Normal (Normal); Ketones,Urine Negative (Negative); Leukocyte Esterase,Urine Negative (Negative); Nitrite,Urine Negative (Negative); PH,Urine 5.5 pH Units (5.0-8.0); Protein,Urine 30 mg/dL (Neg-Trace); Urobilinogen,Urine Normal (Normal)
[2018-12-07 13:49] LABS: Bacteria,Urine None Seen per hpf (None-Few); RBC,Urine TNTC per hpf (0-3); Squamous Epithelial Cell,Urine Many per lpf (None-Few); WBC,Urine 15-30 per hpf (0-3)
[2018-12-07 15:05] LABS: Calcium 8.3 mg/dL (8.6-10.3); Potassium 3.4 mEq/L (3.5-5.1)
[2018-12-08 05:49] LABS: Basophils % 0.5 %; Eosinophils # 0.4 K/mcL (0.0-0.6); Eosinophils % 6.5 %; Hematocrit 27.4 % (35.3-44.9); Hemoglobin 8.9 g/dL (11.5-15.4); Immature Granulocytes % 4.4 % (0-4); Lymphocytes # 1.1 K/mcL (0.6-4.6); Lymphocytes % 16.8 %; Mean Corpuscular HGB Conc 32.5 g/dL (31.6-35.5); Mean Corpuscular Hemoglobin 29.5 pg (28.0-33.3); Mean Corpuscular Volume 90.7 fL (83.0-100.0); Mean Platelet Volume 8.7 fL (9.4-12.4); Monocytes # 0.8 K/mcL (0.0-1.3); Monocytes % 12.7 %; Neutrophils # 3.9 K/mcL (1.6-8.9); Platelet Count 327 K/mcL (140-400); Red Blood Count 3.02 M/mcL (3.82-4.97); Red Cell Distribution Width 14.2 % (11.5-14.5); Segmented Neutrophils % 59.1 %; White Blood Count 6.6 K/mcL (4.3-11.1)
[2018-12-08 06:13] LABS: Calcium 8.4 mg/dL (8.6-10.3)
[2018-12-08] MEDS: *HR* Heparin 5,000 UNIT/ML VIAL SQ SCH ×2 (06:38→17:25)
[2018-12-08] MEDS: 0.9 % Sodium Chloride 1,000 ML IVC SCH ×2 (06:39→18:47)
[2018-12-08] MEDS: Pantoprazole 40 MG VIAL IVP SCH (08:20)
[2018-12-08] MEDS ORDERED: Potassium Chloride 40 MEQ, Lidocaine 1% 2 ML in D5% in Water 500 ML IVPB ONE (12:41)
--- NOTE | 2018-12-08 13:21 | General Surgery Progress Note ---
Date of Encounter: 12/08/18 Time of Encounter: 13:18 - Assessment and Plan (1) Postoperative ileus Current Visit: Yes Status: Acute AAS with ileus vs early obstruction. CT scan on 12/07/2018 ruled out anastomotic leak. And NG tube was placed secondary to small bowel and gastric distention. 900 ML's immediately returned. Patient stated she immediately felt relief. She was maintained on bowel rest overnight. This a.m. patient states she is feeling much better. She had passed a small amount of flatus. Her NG tube was clamped and she was given ice chips. Approximately noon she was reassessed and noted significant flatus and active bowel sounds. NG tube was removed and she was started on a clear liquid diet without carbonation. Notably and understandably, the patient is nervous about discharge and with like to remain in the hospital over the weekend. We discussed this at length and it is a reasonable plan given that she was readmitted with a postoperative ileus. We will slowly advance her diet as bowel function permits. Plan: Continue supportive care and discomfort management while awaiting full return of bowel function Continue G.I. and DVT prophylaxis Incentive spirometry 10 times every hour while awake Out of bed to chair TID, do not offer meal trays while in the bed Activity as tolerated Apply ice 20 minutes on 20 minutes off as needed repeat a.m. labs (2) NEO (acute kidney injury) Current Visit: Yes Status: Acute Creatinine 4.14>>3.99>>1.57 Management per nephrology. Will follow recommendations Would defer total fluid management to nephrology as well. (3) Nausea and vomiting Current Visit: Yes Status: Acute See above Qualifiers: Vomiting type: bilious vomiting Qualified Code(s): R11.14 - Bilious vomiting (4) Hypokalemia Current Visit: Yes Status: Acute Replete as indicated 12/07: K 3.1, replete with 40 MEQ IV; repeat am labs 12/08/2018 K3.0; repleted 40 MEQ IV x2, repeat am labs Subjective Patient reports: no new complaints, feels better, pain is less, voiding w/o difficulty, flatus, bowel movement, afebrile Narrative: Bailey states her nausea, vomiting, and bloating has resolved. She reports passing flatus and that she feels "so much better." Objective Vital Signs - Last 8 Hours Temp Pulse Resp BP Pulse Ox 12/08/18 10:50 97.9 F 84 16 144/70 96 12/08/18 08:35 94 12/08/18 08:13 98.0 F 80 16 131/70 94 Intake and Output 12/07/18 12/08/18 12/08/18 23:59 07:59 15:59 Intake Total 1522 / 3522 1100 / 1100 Output Total 680 / 2080 425 / 1275 850 / 1275 Balance 842 / 1442 675 / -175 -850 / -175 Intake: IV Fluids 1522 / 3522 1100 / 1100 0.9 % Sodium Chloride 1,000 ML 1000 / 2000 1000 / 1000 @ 125 mls/hr IVC .Q8H [facility] Rx#: [id number] Ofirmev 1,000 mg/100 ml 1,000 100 / 100 mg In 100 ml @ 400 mls/hr IVPB Q6HR PRN Rx#:[id number] Potassium Chloride 40 MEQ 522 / 522 Xylocaine 2 ML In Dextrose 5% 500 ML @ 130.5 mls/hr IVPB ONCE ONE Rx#:[id number] Output: Catheter 330 / 505 425 / 925 500 / 925 Gastric Drainage 350 / 350 350 / 350 Other: Blood Glucose* 98 89 74 - General physical appearance no distress, no pain - ENT atraumatic, normocephalic - Neck Neck exam: trachea midline - Respiratory normal expansion, clear to auscultation - Cardiovascular Cardiovascular exam: Present: RRR - Abdomen Abdomen: Present: bowel sounds present, soft, non tender - Integumentary no rash - Neurologic normal sensation - Musculoskeletal normal posture - Psychiatric oriented to time, oriented to person, oriented to place, speech is normal, memory intact - Labs 12/08/18 05:06 12/08/18 05:06 Diabetes panel 12/07/18 12/08/18 Range/Units 14:16 05:06 Sodium 138 144 (136-145) mEq/L Potassium 3.4 L 3.0 L (3.5-5.1) mEq/L Chloride 96 L 102 (98-107) mEq/L Carbon Dioxide 26 26 (23-29) mEq/L BUN 77 H 62 H (8-23) mg/dL Creatinine 3.20 H 1.57 H (0.60-1.20) mg/dL Glucose 144 H 93 (70-105) mg/dL Calcium 8.3 L 8.4 L (8.6-10.3) mg/dL Calcium panel 12/07/18 12/08/18 Range/Units 14:16 05:06 Calcium 8.3 L 8.4 L (8.6-10.3) mg/dL Pituitary panel 12/07/18 12/08/18 Range/Units 14:16 05:06 Sodium 138 144 (136-145) mEq/L Potassium 3.4 L 3.0 L (3.5-5.1) mEq/L Chloride 96 L 102 (98-107) mEq/L Carbon Dioxide 26 26 (23-29) mEq/L BUN 77 H 62 H (8-23) mg/dL Creatinine 3.20 H 1.57 H (0.60-1.20) mg/dL Glucose 144 H 93 (70-105) mg/dL Calcium 8.3 L 8.4 L (8.6-10.3) mg/dL Adrenal panel 12/07/18 12/08/18 Range/Units 14:16 05:06 Sodium 138 144 (136-145) mEq/L Potassium 3.4 L 3.0 L (3.5-5.1) mEq/L Chloride 96 L 102 (98-107) mEq/L Carbon Dioxide 26 26 (23-29) mEq/L BUN 77 H 62 H (8-23) mg/dL Creatinine 3.20 H 1.57 H (0.60-1.20) mg/dL Glucose 144 H 93 (70-105) mg/dL Calcium 8.3 L 8.4 L (8.6-10.3) mg/dL Consult Discharge Plan - Plan Referrals: Melody Olvera, TELEVISION CAMERAMAN [Non-Partnered Physician] -
--- NOTE | 2018-12-08 13:48 | Nephrology Progress Note ---
Date of Encounter: 12/08/18 Time of Encounter: 12:05 - Assessment and Plan (1) NEO (acute kidney injury) Current Visit: Yes Status: Acute SCr trending better, but borderline elevated PNa and ongoing hypokalemia. Will need to replete the hypokalemia and monitor as well as follow serum Mg+. If SCr continues to improve, then would de-escalate the IVF. Additionally, she does not require a Lundberg catheter as she is trending better. When the Lundberg catheter is removed, I would recommend we still keep strict I's and O recordings, daily weights, and continue to follow a renal protective strategy as able including avoidance of nephrotoxic agents. If her renal function continues to trend better, I would then politely sign off tomorrow. Thank you (2) Dehydration Current Visit: Yes Status: Acute Induced the NEO (3) Hypokalemia Current Visit: Yes Status: Acute Agree with the Replacement and have been limited to KCl by IV as she has an NGT. Will reassess serum K+ and Mg+ again in the AM. Often hypokalemia can develop from both IVF, which she has required for the NEO, and from the recent vomiting as well as by an NGT. (4) Postoperative ileus Current Visit: Yes Status: Acute (5) Nausea and vomiting Current Visit: Yes Status: Acute Qualifiers: Vomiting type: bilious vomiting Qualified Code(s): R11.14 - Bilious vom iting Subjective Principal diagnosis: NEO with N/V Interval history: This very polite 73-year-old female was seen and examined earlier today. She reported feeling a little better today and even tried some ice chips when allowed by the other docs. She said that her abdominal pain is starting to trend better and she did not have vomiting or diarrhea after trying the ice chips. She affirmed passing gas. Objective - Vital Signs Vital signs: Vital Signs Temp Pulse Resp BP Pulse Ox 12/08/18 10:50 97.9 F 84 16 144/70 96 12/08/18 08:35 94 12/08/18 08:13 98.0 F 80 16 131/70 94 12/07/18 22:54 99.2 F 89 15 143/73 97 12/07/18 19:47 98.3 F 86 15 132/72 97 12/07/18 14:37 97.9 F 91 14 145/69 98 Intake and Output 12/07/18 12/08/18 12/08/18 23:59 07:59 15:59 Intake Total 1522 / 3522 1100 / 1100 Output Total 680 / 2080 425 / 1275 850 / 1275 Balance 842 / 1442 675 / -175 -850 / -175 Intake: IV Fluids 1522 / 3522 1100 / 1100 0.9 % Sodium Chloride 1,000 ML 1000 / 2000 1000 / 1000 @ 125 mls/hr IVC .Q8H [facility] Rx#: [id number] Ofirmev 1,000 mg/100 ml 1,000 100 / 100 mg In 100 ml @ 400 mls/hr IVPB Q6HR PRN Rx#:[id number] Potassium Chloride 40 MEQ 522 / 522 Xylocaine 2 ML In Dextrose 5% 500 ML @ 130.5 mls/hr IVPB ONCE ONE Rx#:[id number] Output: Catheter 330 / 505 425 / 925 500 / 925 Gastric Drainage 350 / 350 350 / 350 Other: Blood Glucose* 98 89 74 - General Appearance General appearance: Present: well-developed (but thin body habitus), appears started age EENT: Present: ATNC, PERRL, mucous membranes dry Additional Comments: NGT in place Neck: Present: supple Respiratory: Present: no kyphosis Cardiology: Present: no edema, normal S1, normal S2 Gastrointestinal: Present: normoactive bowel sounds, no tenderness Integumentary: Present: warm and dry Neurologic: Present: no focal deficit, no asterixis, alert and oriented x3 Musculoskeletal: Present: no erythema, no cyanosis Psychiatric: Present: mood/affect appropriate, cooperative - Lab 12/08/18 05:06 12/08/18 05:06 Most recent lab results 12/08/18 05:06 Calcium 8.4 L Consult Discharge Plan - Plan Referrals: Melody Olvera, FENCE MACHINE OPERATOR [Non-Partnered Physician] -
[2018-12-08] MEDS ORDERED: Potassium Chloride 40 MEQ, Lidocaine 1% 2 ML in 0.9 % Sodium Chloride 500 ML IVPB ONE (17:30)
[2018-12-09] MEDS: *HR* Heparin 5,000 UNIT/ML VIAL SQ SCH ×2 (05:57→17:20)
[2018-12-09 08:04] LABS: BUN/Creatinine Ratio 40 (6-26); Blood Urea Nitrogen 22 mg/dL (8-23); Calcium 8.2 mg/dL (8.6-10.3); Carbon Dioxide 26 mEq/L (23-29); Chloride 107 mEq/L (98-107); Glucose 81 mg/dL (70-105); Hematocrit 27.8 % (35.3-44.9); Hemoglobin 8.6 g/dL (11.5-15.4); Magnesium 1.2 mg/dL (1.6-2.6); Mean Corpuscular HGB Conc 30.9 g/dL (31.6-35.5); Mean Corpuscular Hemoglobin 29.3 pg (28.0-33.3); Mean Corpuscular Volume 94.6 fL (83.0-100.0); Mean Platelet Volume 8.5 fL (9.4-12.4); Osmolality,Calculated 300 (280-300); Phosphorous 1.4 mg/dL (2.7-4.5); Platelet Count 314 K/mcL (140-400); Potassium 3.5 mEq/L (3.5-5.1); Red Blood Count 2.94 M/mcL (3.82-4.97); Sodium 144 mEq/L (136-145); White Blood Count 8.2 K/mcL (4.3-11.1); eGFR For African Americans > 60 (> 60); eGFR For Non-African Americans > 60 (> 60)
[2018-12-09 08:46] LABS: Eosinophils # 0.3 K/mcL (0.0-0.6); Lymphocytes # 2.1 K/mcL (0.6-4.6); Monocytes # 0.7 K/mcL (0.0-1.3); Neutrophils # 5.1 K/mcL (1.6-8.9); Platelet Estimate Normal (Normal)
[2018-12-09] MEDS: Pantoprazole 40 MG VIAL IVP SCH (08:57)
--- NOTE | 2018-12-09 12:17 | Nephrology Progress Note ---
Date of Encounter: 12/09/18 Time of Encounter: 10:05 - Assessment and Plan (1) NEO (acute kidney injury) Current Visit: Yes Status: Acute The NEO has resolved at this point, and her hypokalemia has also improved. Hypomagnesemia: noted, and I recommend starting oral Mag Oxide now that the NGT has been removed Hypokalemia: trending better, but borderline at 3.5. Should improve as her diet advances. Given her nice improvement, I will politely sign-off at this time, but please feel free to call or page me with any Renal questions. Thank you (2) Dehydration Current Visit: Yes Status: Resolved Resolved (3) Hypokalemia Current Visit: Yes Status: Acute See above (4) Postoperative ileus Current Visit: Yes Status: Acute (5) Nausea and vomiting Current Visit: Yes Status: Resolved See above. Qualifiers: Vomiting type: bilious vomiting Qualified Code(s): R11.14 - Bilious vomiting (6) Hypomagnesemia Current Visit: Yes Status: Acute See above Subjective Principal diagnosis: NEO with N/V Interval history: The pt was S/E and her spouse was present as well. She affirmed feeling better again today without active N/V/D. The NGT was removed. Dr. Hobbs was also present during my interview and exam. Objective - Vital Signs Vital signs: Vital Signs Temp Pulse Resp BP Pulse Ox 12/09/18 11:42 97.9 F 81 15 133/69 99 12/09/18 07:30 100 12/09/18 07:03 98.2 F 84 15 128/69 100 12/09/18 03:17 98.1 F 79 15 150/77 99 12/08/18 20:15 98.2 F 80 14 139/73 97 12/08/18 16:26 97.7 F 79 15 138/68 96 Intake and Output 12/08/18 12/09/18 12/09/18 23:59 07:59 15:59 Intake Total 100 / 2200 60 / 60 Output Total 250 / 1675 300 / 500 200 / 500 Balance -150 / 525 -300 / -440 -140 / -440 Intake: Oral 100 / 100 60 / 60 Output: Urine 250 / 250 300 / 500 200 / 500 Other: Meal clears # Bowel Movements 1 - General Appearance Exam: General appearance: Present: well-developed (but thin body habitus), appears started age EENT: Present: ATNC, PERRL, mucous membranes moist Neck: Present: supple Respiratory: Present: no kyphosis Cardiology: Present: no edema, normal S1, normal S2 Gastrointestinal: Present: normoactive bowel sounds, no tenderness Integumentary: Present: warm and dry Neurologic: Present: no focal deficit, no asterixis, alert and oriented x3 Musculoskeletal: Present: no erythema, no cyanosis Psychiatric: Present: mood/affect appropriate, cooperative - Lab 12/09/18 07:15 12/09/18 07:15 Most recent lab results 12/09/18 07:15 Calcium 8.2 L Phosphorus 1.4 L Magnesium 1.2 L Consult Discharge Plan - Plan Referrals: Melody Olvera, FLIGHT DECK OFFICER [Non-Partnered Physician] -
[2018-12-09] MEDS: 0.9 % Sodium Chloride 1,000 ML IVC SCH ×3 (12:55→17:22)
[2018-12-09] MEDS: Magnesium Oxide 400 MG TABLET PO SCH ×2 (12:55→21:57)
[2018-12-10] MEDS: 0.9 % Sodium Chloride 1,000 ML IVC SCH (03:32)
[2018-12-10] MEDS: *HR* Heparin 5,000 UNIT/ML VIAL SQ SCH (05:47)
[2018-12-10 05:52] LABS: BUN/Creatinine Ratio 22 (6-26); Blood Urea Nitrogen 11 mg/dL (8-23); Calcium 7.9 mg/dL (8.6-10.3); Carbon Dioxide 25 mEq/L (23-29); Chloride 106 mEq/L (98-107); Glucose 88 mg/dL (70-105); Osmolality,Calculated 293 (280-300); Phosphorous 1.8 mg/dL (2.7-4.5); Sodium 142 mEq/L (136-145); eGFR For African Americans > 60 (> 60); eGFR For Non-African Americans > 60 (> 60)
[2018-12-10 07:20] VITALS: BP 137/73
--- NOTE | 2018-12-10 07:35 | General Surgery Progress Note ---
Date of Encounter: 12/10/18 Time of Encounter: 07:33 - Assessment and Plan (1) Postoperative ileus Current Visit: Yes Status: Acute Plan for regular diet this a.m. If tolerated she may be discharged. Subjective Patient reports: no new complaints (Pt feels much better with no nausea after meals. She reports several bowel movements. ) Objective Vital Signs - Last 8 Hours Temp Pulse Resp BP Pulse Ox 12/10/18 07:16 97.8 F 76 14 137/73 99 12/10/18 04:43 97.6 F 88 13 128/50 90 Intake and Output 12/09/18 12/09/18 12/10/18 15:59 23:59 07:59 Intake Total 300 / 1360 60 / 1360 1240 / 1240 Output Total 300 / 700 100 / 700 600 / 600 Balance 0 / 660 -40 / 660 640 / 640 Intake: IV Fluids 1000 / 1000 0.9 % Sodium Chloride 1,000 ML 1000 / 1000 @ 125 mls/hr IVC .Q8H [facility] Rx#: [id number] Oral 300 / 360 60 / 360 240 / 240 Output: Urine 300 / 700 100 / 700 600 / 600 Other: Meal Lunch Dinner Stool Size Small Small Stool Consistency soft Stool Color Richard Colored Yellow # Voids 3 # Bowel Movements 1 1 1 - General physical appearance well developed, well nourished - Abdomen Abdomen: Present: bowel sounds present - Incision Incision: Present: clean and dry - Labs 12/09/18 07:15 12/10/18 05:05 Diabetes panel 12/09/18 12/10/18 Range/Units 07:15 05:05 Sodium 144 142 (136-145) mEq/L Potassium 3.5 3.0 L (3.5-5.1) mEq/L Chloride 107 106 (98-107) mEq/L Carbon Dioxide 26 25 (23-29) mEq/L BUN 22 11 (8-23) mg/dL Creatinine 0.55 L 0.50 L (0.60-1.20) mg/dL Glucose 81 88 (70-105) mg/dL Calcium 8.2 L 7.9 L (8.6-10.3) mg/dL Calcium panel 12/09/18 12/10/18 Range/Units 07:15 05:05 Calcium 8.2 L 7.9 L (8.6-10.3) mg/dL Phosphorus 1.4 L 1.8 L (2.7-4.5) mg/dL Pituitary panel 12/09/18 12/10/18 Range/Units 07:15 05:05 Sodium 144 142 (136-145) mEq/L Potassium 3.5 3.0 L (3.5-5.1) mEq/L Chloride 107 106 (98-107) mEq/L Carbon Dioxide 26 25 (23-29) mEq/L BUN 22 11 (8-23) mg/dL Creatinine 0.55 L 0.50 L (0.60-1.20) mg/dL Glucose 81 88 (70-105) mg/dL Calcium 8.2 L 7.9 L (8.6-10.3) mg/dL Adrenal panel 12/09/18 12/10/18 Range/Units 07:15 05:05 Sodium 144 142 (136-145) mEq/L Potassium 3.5 3.0 L (3.5-5.1) mEq/L Chloride 107 106 (98-107) mEq/L Carbon Dioxide 26 25 (23-29) mEq/L BUN 22 11 (8-23) mg/dL Creatinine 0.55 L 0.50 L (0.60-1.20) mg/dL Glucose 81 88 (70-105) mg/dL Calcium 8.2 L 7.9 L (8.6-10.3) mg/dL Consult Discharge Plan - Plan Referrals: Melody Olvera, CIRCULATION LIBRARIAN [Non-Partnered Physician] -
--- NOTE | 2018-12-10 07:37 | Discharge Summary ---
Date of Encounter: 12/10/18 Time of Encounter: 07:36 - Discharge Diagnosis (1) Postoperative ileus Priority: Primary Status: Acute Comments: Patient is back to baseline tolerating regular diet. Patient may be discharged. General Surgery Exam Initial Vital Signs Temp Pulse Resp BP Pulse Ox 97.3 F L 111 14 142/64 97 12/06/18 15:20 12/06/18 15:20 12/06/18 15:20 12/06/18 15:20 12/06/18 15:20 - General physical appearance well nourished, no distress - Neck trachea midline - Respiratory normal expansion - Abdomen Abdomen general surgery: Present: bowel sounds present, soft, non tender - Neurologic Present: CN 2-12 grossly intact - Hospital Course Hospital course: Ms. Schaffer is a 73 year old female - Time Spent with Patient Total time spent providing and/or coordinating discharge services: - Discharge Medications Prescriptions: No Action Sertraline [Zoloft] 50 mg PO QAM Simvastatin [Zocor] 20 mg PO QAM Oxazepam 10 mg PO QAM DiphenhydraMINE [Benadryl] 25 mg PO QAM Home Medications: Oxazepam 10 mg PO QAM 10/11/18 [History] Sertraline [Zoloft] 50 mg PO QAM 10/11/18 [History] Simvastatin [Zocor] 20 mg PO QAM 10/11/18 [History] DiphenhydraMINE [Benadryl] 25 mg PO QAM 12/01/18 [History] Allergies/Adverse Reactions: Allergy/AdvReac Type Severity Reaction Status Date / Time promethazine Allergy Hallucinati Verified 12/07/18 11:47 ng Date of admission: 12/06/18 15:08 Primary care physician: PCP NONE Consults: 12/07/18 11:16 Consult to Nephrology [CONS] Routine Consulting Provider: Kidney Candice/DEREK/SHAUNA/NILS Reason for Consult: NEO; pt with vomiting and prior to admission in setting of postoperative ileus (s/p ileosotmy takedown 12/01/2018). Creat 4.14 on admission, now 3.99 (2L IVF thus far, currently infusing 1L bolus over two hours and MIV at 125 ml/hr). Lundberg cath inserted. Will be having CT abd/pelvis this afternoon Time Notified: 11:18 Call Completed: Yes Labs on day of discharge: Labs from last 24 hours 12/10/18 12/09/18 12/09/18 05:05 07:15 07:15 WBC 8.2 RBC 2.94 L Hgb 8.6 L Hct 27.8 L MCV 94.6 MCH 29.3 MCHC 30.9 L RDW 14.0 Plt Count 314 MPV 8.5 L Seg Neutrophils % 62.0 Lymphocytes % 26.0 Monocytes % 8.0 Eosinophils % 4.0 Neutrophils # 5.1 Lymphocytes # 2.1 Monocytes # 0.7 Eosinophils # 0.3 Platelet Estimate Normal Sodium 142 144 Potassium 3.0 L 3.5 Chloride 106 107 Carbon Dioxide 25 26 BUN 11 22 Creatinine 0.50 L 0.55 L Est GFR ( Amer) > 60 > 60 Est GFR (Non-Af Amer) > 60 > 60 BUN/Creatinine Ratio 22 40 H Glucose 88 81 POC Glucose Calculated Osmolality 293 300 Calcium 7.9 L 8.2 L Phosphorus 1.8 L 1.4 L Magnesium 1.0 L 1.2 L 12/08/18 13:05 WBC RBC Hgb Hct MCV MCH MCHC RDW Plt Count MPV Seg Neutrophils % Lymphocytes % Monocytes % Eosinophils % Neutrophils # Lymphocytes # Monocytes # Eosinophils # Platelet Estimate Sodium Potassium Chloride Carbon Dioxide BUN Creatinine Est GFR ( Amer) Est GFR (Non-Af Amer) BUN/Creatinine Ratio Glucose POC Glucose 74 Calculated Osmolality Calcium Phosphorus Magnesium - Impressions ITS Impressions Abdomen X-Ray 12/07/18 07:53 IMPRESSION: Moderate dilation of some small bowel loops potentially due to postoperative ileus or partial obstruction. At least trace pneumoperitoneum that is likely related to recent ileostomy reversal. Critical results were called by Dr. Anthony Victor MD to Francheska Harrison CNP on 12/07/2018 at 08:45. D/ / Anthony Victor MD / Anthony Victor MD Interpreting Provider: Anthony Victor MD Abdomen/Pelvis CT 12/07/18 12:30 IMPRESSION: 1. Multiple dilated loops of small bowel and distention of the stomach with relative decompression of the colon. Differential includes ileus versus early bowel obstruction at the level of the ileocolic anastomosis. Patient has had a partial colectomy with an ileocolic anastomosis in the right lower quadrant. 2. Free intraperitoneal air, likely related to recent surgery. D/ / 12/07/2018 13:21:03 Jarrod Gil MD / [email or web address] Interpreting Provider: Jarrod Gil MD X-Ray 12/07/18 14:28 IMPRESSION: Enteric tube in the stomach as above. Free air under the left hemidiaphragm likely secondary to recent surgery. D/ / 12/07/2018 15:09:37 Stanley Rodriguez MD / Junie Henry Interpreting Provider: Stanley Rodriguez MD Retroperitoneum Ultrasound 12/07/18 15:00 IMPRESSION: 1. No evidence of obstructive uropathy. Mild right renal pelvicaliectasis without brenna hydronephrosis. D/ / 12/07/2018 15:35:42 Jarrod Gil MD / [email or web address] Interpreting Provider: Jarrod Gil MD - Patient Status Disposition: Home, Self-Care Condition: Good Functional capacity at discharge: independent ambulation Overall status at discharge: patient is back to baseline - Discharge Instructions Follow Up With: Melody Olvera, FOLLOW UP SPECIALIST [Non-Partnered Physician] -
[2018-12-10] MEDS: Magnesium Oxide 400 MG TABLET PO SCH (07:52)
[2018-12-10] MEDS: Pantoprazole 40 MG VIAL IVP SCH (07:52)
== END 2018-12-10 10:13 | disposition home or self-care (01) ==
LOC: 3ANU
PROVIDERS: ADMIT Surgery; ATTEND Surgery